=== PATIENT | female | born 1975 | race Caucasian/White ===

== ENCOUNTER → 2018-03-06 09:51 | Outpatient (CLI) | payer OTHER, SELFPAY ==
--- NOTE | 2018-03-06 09:54 | BI_ITS ---
MAMMOGRAPHY - BILATERAL SCREENING REASON FOR EXAM: Female, 42 years old. Routine annual screening examination. PERTINENT HISTORY: Aunt with breast cancer. TECHNIQUE: Digital bilateral breast juan (3D mammographic acquisition) in the CC and MLO projections. 2-D mediolateral oblique (MLO) and craniocaudad (CC) views of both breasts were obtained. CAD: Full Field Digital Mammography with Computer Added Detection was performed. COMPARISON: Comparison is made with prior study dated March 04, 2017 and March 02, 2016. FINDINGS: Breast Composition: There are scattered areas of fibroglandular density. There are no dominant masses or suspicious calcifications. Stable 1.2 cm well-defined nodule in the upper outer aspect of the right breast. This most likely is a small lymph node. Stable 6 mm well-defined nodule in the anterior superior aspect of the right breast. No other significant abnormalities are identified. There has been no significant change since the prior study. BI/SCREENING MAMM (CAD), BILAT IMPRESSION: Stable bilateral screening mammogram. Yearly follow-up mammogram recommended. (A) ASSESSMENT CATEGORY: BIRADS Category 2: Benign. A letter regarding these results will be sent to the patient by the facility within 30 days. Approximately 10% of breast cancers are not detected by mammography. A normal mammogram should not delay biopsy of a clinically suspicious abnormality. [id number] Electronically Signed: Juan M Wall MD at 9:39 EDT Tel [phone], Service support ,
== END ==
PROVIDERS: Family Provider Family Medicine; PCP Family Medicine; Visit Provider Obstetrics & Gynecology
DX: Z12.31 Encounter for screening mammogram for malignant neoplasm of breast (principal)
CPT/HCPCS: 77063; 77067

== ENCOUNTER 2018-10-03 14:18 | Observation (INO) | payer OTHER, SELFPAY ==
[2018-10-03] VITALS (8 sets, daily range): BP systolic 113–146; BP diastolic 70–91; PULSE 67–103; RESP 16–18; TEMP 36.6–36.9; O2SAT 95–99; BMI 44.7; BMI 42.8
--- NOTE | 2018-10-03 14:42 | RAD_ITS ---
STUDY: X-RAY CHEST REASON FOR EXAM: Female, 43 years old. Mid chest pain with radiation to the left side. TECHNIQUE: Single AP portable view of the chest. COMPARISON: None. FINDINGS: The lungs are clear and expanded. Scattered calcified granulomas. There is no demonstrated pleural abnormality. Normal size heart. Normal mediastinum and kahlil. Normal visualized pulmonary arteries. Normal visualized aortic arch and descending thoracic aorta. Normal visualized thoracic spine. Normal visualized ribs, clavicles, and shoulders. There is no demonstrated abnormality of the visualized soft tissue structures of the upper abdomen. RAD/Chest 1 View (Portable) IMPRESSION: Normal x-ray examination of the chest. Electronically Signed: Juan M Wall MD at 15:16 EST Tel [phone], Service support ,
--- NOTE | 2018-10-03 14:42 | EKG12_ITS ---
Test Reason : CP Blood Pressure : / mmHG Vent. Rate : 086 BPM Atrial Rate : 086 BPM P-R Int : 116 ms QRS Dur : 082 ms QT Int : 366 ms P-R-T Axes : 029 004 020 degrees QTc Int : 437 ms Normal sinus rhythm Normal ECG Confirmed by NIKUNJ ROBERT MD ([id number]), newspaper managing editor JUDITH SOLIMAN ([id number]) on 10/06/2018 2:24:42 PM Referred By: FARAZ Confirmed By:NIKUNJ ROBERT MD
[2018-10-03 14:53] LABS: Absolute Lymphocyte Count 3.46 X10^3/ul (0.83-4.51); Absolute Neutrophil Count 5.2 X10^3/uL (2.0-7.7); Basophil# 0.05 X10^3/uL; Basophil% 0.5 % (0-1); Eosinophil# 0.08 X10^3/uL; Eosinophils% 0.9 % (0-5); Hematocrit 42.1 % (37-47); Hemoglobin 13.4 g/dl (12.0-15.0); Lymphocyte # 3.46 X10^3/ul (4.0); Lymphocyte % 37.1 % (19-41); Mean Corp Hgb Conc 31.8 g/gl (32-36); Mean Corpuscular Hgb 27.5 pg (27.0-32.0); Mean Corpuscular Volume 86.4 fL (81-99); Mean Platelet Vol. 10.8 fl (6.2-12.0); Monocyte# 0.56 X10^3/uL; Neutrophil # 5.16 X10^3/uL (2.7-7.7); Neutrophil % 55.3 % (47-70); POSITIVE COUNT NO; POSITIVE DIFFERENTIAL NO; POSITIVE MORPHOLOGY NO; Platelet Count 268 K/mm3 (150-450); RBC Distribution Width CV 14.1 % (11.6-14.6); RBC Distribution Width SD 43.6 fl (35.1-43.9); Red Blood Count 4.87 M/mm3 (4.2-5.4); White Blood Count 9.3 K/mm3 (4.4-11.0)
[2018-10-03 15:02] LABS: D-Dimer Quantitative (DVT/PE) 0.34 FEU/ug/m (0.27-0.49)
[2018-10-03 15:09] LABS: Anion Gap 10 (5-15); BUN 12 mg/dL (7-18); BUN/Creat Ratio 20.4 RATIO (10-20); Calcium,Total 8.8 mg/dL (8.5-10.1); Chloride 104 mmol/L (98-107); Creatinine, Serum 0.59 mg/dL (0.55-1.02); EST Glomerular Filtration Rate 118 mL/min (>60); Est Glom Filt Rate - Afr Amer 142 mL/min (>60); Estimated Creatinine Clearance 125.84 ml/min; Glucose 95 mg/dL (74-106); Potassium 3.9 mmol/L (3.5-5.1); Sodium Level 137 mmol/L (136-145)
[2018-10-03] MEDS: 0.9% Normal Saline 1,000 ML 150 ML IV ×2 (15:13→17:27)
[2018-10-03] MEDS: Aspirin 81 MG TAB.CHEW 324 MG PO (15:13)
--- NOTE | 2018-10-03 15:23 | ED.VISSUMM ---
- ER Visit Summary Date of Service: 10/03/18 Chief Complaint: [Chest pain ] History of Present Illness: The patient is a 43 F [presents to the emergency department with pain since noon. Patient describes the pain as sharp and stabbing in the center of her chest and left chest. The pain radiates to her left shoulder and the neck. Patient describes tightness in her throat. Patient felt short of breath with it and she has had nausea and vomiting associated with it.] Patient states that she felt flushed and dizzy with it. Patient was vomiting on arrival in the emergency department. She has not had discomfort like this before. She does have a family history of heart disease and that her father has had heart attacks with cardiac stents. 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 Physical Examination: [HEENT-PERRLA, EOMI. Cranial nerves II through XII grossly intact. TMs clear. Mucous membranes moist. No adenopathy. Cardiovascular-regular rate and rhythm without murmur or ectopy Lungs-clear to auscultation, chest wall stable without crepitus or subcu emphysema Abdomen-normoactive bowel sounds, soft, nontender, no rebound or rigidity, no peritoneal signs. Extremities-intact ?4, normal range of motion, normal pulses, atraumatic] Test Results: [EKG obtained arrival shows sinus rhythm with a ventricular rate of 86 bpm with no acute ST segment changes. CBC with differential was normal. Chemistries normal. Troponin was less than 0.015. D-dimer was normal at 0.34. Chest x-ray showed nothing acute.] Emergency Department Course and Treatment: [Patient received aspirin in the emergency department. Patient was mostly pain-free on arrival.] Treatment Plan: [Admit for further workup and evaluation] Disposition: [Admit] Impression: [Chest pain-rule out acute coronary syndrome] This note was generated with [employer] dictation software. It may contain incorrect words, spelling, and punctuation that were not noted in review of the chart prior to signing ED Disposition - Plan for ED Patient: Chief Complaint: Chest Pain Referrals: Richard Murdock III, MD [Primary Care Provider] -
--- NOTE | 2018-10-03 15:28 | ED.DCSUM_ITS ---
- ER Visit Summary Date of Service: 10/03/18 Chief Complaint: [Chest pain ] History of Present Illness: The patient is a 43 F [presents to the emergency department with pain since noon. Patient describes the pain as sharp and stabbing in the center of her chest and left chest. The pain radiates to her left shoulder and the neck. Patient describes tightness in her throat. Patient felt short of breath with it and she has had nausea and vomiting associated with it.] Patient states that she felt flushed and dizzy with it. Patient was vomiting on arrival in the emergency department. She has not had discomfort like this before. She does have a family history of heart disease and that her father has had heart attacks with cardiac stents. 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 Physical Examination: [HEENT-PERRLA, EOMI. Cranial nerves II through XII grossly intact. TMs clear. Mucous membranes moist. No adenopathy. Cardiovascular-regular rate and rhythm without murmur or ectopy Lungs-clear to auscultation, chest wall stable without crepitus or subcu emphysema Abdomen-normoactive bowel sounds, soft, nontender, no rebound or rigidity, no peritoneal signs. Extremities-intact ?4, normal range of motion, normal pulses, atraumatic] Test Results: [EKG obtained arrival shows sinus rhythm with a ventricular rate of 86 bpm with no acute ST segment changes. CBC with differential was normal. Chemistries normal. Troponin was less than 0.015. D-dimer was normal at 0.34. Chest x-ray showed nothing acute.] Emergency Department Course and Treatment: [Patient received aspirin in the emergency department. Patient was mostly pain-free on arrival.] Treatment Plan: [Admit for further workup and evaluation] Disposition: [Admit] Impression: [Chest pain-rule out acute coronary syndrome] This note was generated with [employer] dictation software. It may contain incorrect words, spelling, and punctuation that were not noted in review of the chart prior to signing ED Disposition - Plan for ED Patient: Chief Complaint: Chest Pain Referrals: Richard Murdock III, MD [Primary Care Provider] -
--- NOTE | 2018-10-03 15:53 | HP.PCM_ITS ---
<Jeb Pereira - Last Filed: 10/03/18 15:57> Problem List (1) Chest pain Status: Acute (2) Restless legs Status: Chronic (3) Anxiety Status: Acute History of Present Illness Date of Admission: 10/03/18 Chief Complaint: chest pain The patient is a 43 year old F with pmhx of restless legs, morbid obesity, anxiety, former smoker, who presented to the ER with c/o 1 day hx of chest pain. This began this AM while she was sitting at work in a chair. She had a several minute episode of mid epigastric/ lower midsternal chest sharp pain with radiation into her back and left armpit. There was some associated dizziness. She had no SOB. It went away on its own, but recurred many times over the day with no specific trigger. She vomited several times during the day. She states she has not felt well for a few days and was having chills and dizziness for a few days. She has no hx of heart disease. She takes estrogen oral supplements since having a hysterectomy, but D dimer is negative. CXR, EKG, and trop are all negative. She has a positive family hx with a father with heart disease and a mother with stroke. 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 pertinent EMPLOYMENT SERVICE SPECIALIST history Lives: With Family Smoking Status: Former smoker Tobacco Use: Non-smoker Alcohol: Rare Drugs: None - *Family History Maternal History Items: Stroke Paternal History Items: Heart Disease Review of Systems Constitutional: Denies: Chills, Fever, Weight Change HEENT: Denies: Head Aches, Sinus Congestion, Sinus Drainage Cardiovascular: Denies: Chest Pain, Palpitations Respiratory: Denies: Cough, Shortness of breath at rest, Sputum production Gastrointestinal: Denies: Abdominal Pain, Nausea, Vomiting Genitourinary: Denies: Dysuria Musculoskeletal: Denies: Joint Pain, Joint Tenderness Skin: Denies: Rash, Wounds Neurological: Denies: Numbness, Tingling, Focal weakness Psychiatric: Denies: Anxiety, Depression, Homicidal Ideations, Suicidal Ideations Hematologic/ Lymphatic: Denies: Easy Bruising, Easy Bleeding VTE Information - Inpt Only VTE Present on Admission: No VTE Mechan Device Prophylaxis: None VTE Pharm Prophylaxis ordered?: Yes Patient Problems: Active and Suspected Problems Chest pain (Acute) Anxiety (Acute) - Physical Exam General: Alert, Oriented x3, Cooperative HEENT: Atraumatic, PERRLA, EOMI, Normocephalic Neck: Supple, No JVD, Negative Carotid Bruits Lungs: Clear to auscultation, Normal air movement Cardiovascular: Regular rate, No murmurs Abdomen: Bowel Sounds Present, Soft, Non Tender Extremities: No edema, Capillary Refill Less than 3 Seconds Skin: No rashes, No breakdown Musculoskeletal: No Tenderness to Palpation of Joints or Extremities Neurological: Cranial nerves II-XII grossly intact Psych/Mental Status: Normal Affect, Appropriate Vital Signs Temp Pulse Resp BP Pulse Ox 97.9 F 87 16 140/70 H 95 10/03/18 14:19 10/03/18 14:40 10/03/18 14:40 10/03/18 14:40 10/03/18 14:40 Oxygen Delivery Method Room Air Weight: 303 lb Body Mass Index (BMI) 44.7 Laboratory Tests Past 24 Hrs 10/03/18 10/03/18 10/03/18 14:35 14:35 14:35 WBC 9.3 RBC 4.87 Hgb 13.4 Hct 42.1 MCV 86.4 MCH 27.5 MCHC 31.8 L RDW 14.1 RDW Differential 43.6 Plt Count 268 MPV 10.8 Immature Gran % (Auto) 0.200 Neut % (Auto) 55.3 Lymph % (Auto) 37.1 [place] % (Auto) 6.0 Eos % (Auto) 0.9 Baso % (Auto) 0.5 Absolute Neuts (auto) 5.2 Absolute Lymphs (auto) 3.46 Total Counted Not Reportable D-Dimer Quant (PE/DVT) 0.34 Sodium 137 Potassium 3.9 Chloride 104 Carbon Dioxide 23.0 Anion Gap 10 BUN 12 Creatinine 0.59 Estim Creat Clear Calc 125.84 Est GFR (MDRD) Af Amer 142 Est GFR (MDRD) Non-Af 118 BUN/Creatinine Ratio 20.4 H Glucose 95 Calcium 8.8 Troponin I < 0.015 Assessment/Plan All Active Problems Chest pain (Acute) Anxiety (Acute) 1. Chest pain - midepigastric/lower midsternal with back and left armpit radiation. EKG negative, trop neg, cxr neg. D dimer was negative however with + fm hx of clots and pt is on estradiol - will check CTA chest. Cycle enzymes, check AM EKG, Stress test in AM. She also complains of heartburn for several days and she has had vomiting - may be a component of reflux. 2. Anxiety - prn ativan 3. RLS - requip 4. Morbid obesity - dietary eval DVT ppx: lovenox This patient was seen by Jeb Pereira PA-C under the supervision of Doctor Brant. <Ramonita Guo - Last Filed: 10/03/18 19:16> History of Present Illness The patient is a 43 year old F [] Past Medical History Allergies Penicillins [PCN] Allergy (Verified 10/03/18 16:08) Hives - Physical Exam Vital Signs Temp Pulse Resp BP Pulse Ox 98.4 F 95 18 145/80 H 98 10/03/18 16:05 10/03/18 16:05 10/03/18 16:05 10/03/18 16:05 10/03/18 16:05 Oxygen Delivery Method Room Air Weight: 303 lb Body Mass Index (BMI) 44.7 Laboratory Tests Past 24 Hrs 10/03/18 10/03/18 10/03/18 14:35 14:35 14:35 WBC 9.3 RBC 4.87 Hgb 13.4 Hct 42.1 MCV 86.4 MCH 27.5 MCHC 31.8 L RDW 14.1 RDW Differential 43.6 Plt Count 268 MPV 10.8 Immature Gran % (Auto) 0.200 Neut % (Auto) 55.3 Lymph % (Auto) 37.1 [place] % (Auto) 6.0 Eos % (Auto) 0.9 Baso % (Auto) 0.5 Absolute Neuts (auto) 5.2 Absolute Lymphs (auto) 3.46 Total Counted Not Reportable D-Dimer Quant (PE/DVT) 0.34 Sodium 137 Potassium 3.9 Chloride 104 Carbon Dioxide 23.0 Anion Gap 10 BUN 12 Creatinine 0.59 Estim Creat Clear Calc 125.84 Est GFR (MDRD) Af Amer 142 Est GFR (MDRD) Non-Af 118 BUN/Creatinine Ratio 20.4 H Glucose 95 Calcium 8.8 Troponin I < 0.015 Assessment/Plan Patient seen by Jeb Pereira PA-C under my supervision. Patient is a 43 y/o female with a PMH of anxiety was admitted with a complaint of sudden onset left-sided sharp chest pain which radiated to her shoulder and neck. She has not had pain like this before and rated about 7 out of 10. She complained of associated lightheadedness and feeling like there is a lump in her throat but denied any shortness of breath or dizziness. 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 She remembers that her mother has a history of PE but does not know whether it was provoked or unprovoked. She has also been on estrogen supplements after having a hysterectomy. In the ED, EKG was negative for any acute ST changes and D dimer was negative. She is being admitted to be managed for chest pain, to rule ACS. o/e: Vital Signs Height 5 ft 11 in Weight: 307 lb 1.663 oz Weight in Pounds 307.1 lbs Pulse Ox 98 Temperature 98.4 F Pulse Rate 95 Respiratory Rate 18 Blood Pressure 145/80 General: Alert, Oriented x3, Cooperative HEENT: Atraumatic, PERRLA, EOMI, Normocephalic Neck: Supple, No JVD, Negative Carotid Bruits Lungs: Clear to auscultation, Normal air movement Cardiovascular: Regular rate, No murmurs Abdomen: Bowel Sounds Present, Soft, Non Tender Extremities: No edema, Capillary Refill Less than 3 Seconds Skin: No rashes, No breakdown Musculoskeletal: No Tenderness to Palpation of Joints or Extremities Neurological: Cranial nerves II-XII grossly intact Psych/Mental Status: Normal Affect, Appropriate Plan is to admit to PCU with telemetry. To have CTA to rule out PE. Will do stress test tomorrow to rule out ACS. Trend troponins. PO aspirin 81mg daily and SL nitroglycerin prn. Agree with rest of Jeb Pereira PA-C's note, assessment and plan. 10/03/18 7:12pm CT angioggram came back showing normal enhancement of main pulmonary artery and right and left pulmonary arteries. Contrast bolus was inadequate to evaluate for pulmonary embolism. I was called to see patient as she kept complaining of chest pain. troponin x 2 were negative. EKG showed no acute ST changes. I am reticent about repeating CT Angiogram tonight o.a of repeated exposure to contrast this evening. She is having a stress test tomorrow also which will entail further contrast exposure. Will therefore give one dose of therapeutic lovenox SC 120mg once. If chest pain persists, to consider repeat of CT angiogram tomorrow or do a Duplex of her LEs to rule out a PE. Code Visit OBSV E&M: 91119 Initial observation care L3
--- NOTE | 2018-10-03 16:05 | CT_ITS ---
STUDY: CTA CHEST REASON FOR EXAM: Female, 43 years old. Chest pain RADIATION DOSAGE (If Supplied By Facility): CTDIvol = ( 17.65 ) mGy, DLP = ( 736.03 ) mGycm TECHNIQUE: The examination was performed with the intravenous administration of 100 ml of Isovue 370 contrast material. Post-processing of the angiographic images was performed, with multiplanar reformation and 3D reconstruction. Individualized dose optimization techniques were used for this CT. COMPARISON: None. FINDINGS: Normal enhancement of the main pulmonary artery and right and left pulmonary arteries. Contrast bolus is inadequate to evaluate for pulmonary embolism. There is contrast within the aorta and the pulmonary veins time of the study. There is poor visualization of contrast within the main pulmonary arteries into the lower branches. Normal thoracic aorta and visualized great vessels. There is no demonstrated aortic dissection. Normal heart and pericardium. Normal mediastinum. Normal hilar regions. Normal visualized trachea and bronchi. The lungs are well expanded. Normal pulmonary parenchyma. Normal pleura. Normal chest wall structures. Normal osseous structures. The liver is enlarged and fatty infiltrated. The gallbladder is present. There is a minimal hiatal hernia. CT/CTA Chest W/WO Contrast IMPRESSION: This is a nondiagnostic exam to evaluate pulmonary arteries. There is a limited amount of contrast within the pulmonary arteries time of this study. Pulmonary embolism is not included or excluded. If there is persistent clinical concern recommend repeating the study in 24 hours if renal laboratory values permit , with a dedicated pulmonary embolism protocol. Hepatic steatosis No evidence of focal infiltrate. Electronically Signed: Rita Reed MD at 17:16 EST Tel , Service support ,
--- NOTE | 2018-10-03 16:30 | EKG12_ITS ---
Test Reason : CP Blood Pressure : / mmHG Vent. Rate : 085 BPM Atrial Rate : 085 BPM P-R Int : 140 ms QRS Dur : 080 ms QT Int : 390 ms P-R-T Axes : 037 013 026 degrees QTc Int : 464 ms Normal sinus rhythm with sinus arrhythmia Normal ECG When compared with ECG of 03-OCT-2018 14:32, MANUAL COMPARISON REQUIRED, DATA IS UNCONFIRMED Confirmed by YESICA BARRAZA, NIKUNJ ([id number]), brands editor JUDITH SOLIMAN ([id number]) on 10/06/2018 3:06:00 PM Referred By: Confirmed By:NIKUNJ ROBERT MD
[2018-10-03] MEDS: Acetaminophen 325 MG Tablet 650 MG PO (17:38)
--- NOTE | 2018-10-03 19:22 | EKG12_ITS ---
Test Reason : CP Blood Pressure : / mmHG Vent. Rate : 084 BPM Atrial Rate : 084 BPM P-R Int : 152 ms QRS Dur : 086 ms QT Int : 392 ms P-R-T Axes : 041 020 020 degrees QTc Int : 463 ms Normal sinus rhythm Normal ECG When compared with ECG of 03-OCT-2018 16:24, MANUAL COMPARISON REQUIRED, DATA IS UNCONFIRMED Confirmed by YESICA BARRAZA, NIKUNJ ([id number]), online editor JUDITH SOLIMAN ([id number]) on 10/06/2018 3:06:11 PM Referred By: ZACHARIAH Confirmed By:NIKUNJ ROBERT MD
[2018-10-03] MEDS: HYDROmorphone 0.5 MG/0.5 ML SYRINGE IV (20:34)
[2018-10-03] MEDS: Pramipexole Di-HCl 0.25 MG Tablet PO (20:35)
[2018-10-03] MEDS: Enoxaparin 150 MG/ML Syringe 140 MG SC (20:35)
[2018-10-04] MEDS: 0.9% Normal Saline 1,000 ML 125 ML IV ×2 (00:42→10:55)
[2018-10-04 01:45] VITALS: BP 113/71; PULSE 73; RESP 18; TEMP 36.4; O2SAT 96
[2018-10-04] MEDS: HYDROmorphone 0.5 MG/0.5 ML SYRINGE IV (01:55)
[2018-10-04 03:02] VITALS: PULSE 70
[2018-10-04] MEDS: Ondansetron 4 MG/2 ML Vial IV (03:05)
[2018-10-04 05:30] LABS: Anion Gap 6 (5-15); BUN 10 mg/dL (7-18); Calcium,Total 7.9 mg/dL (8.5-10.1); Chloride 106 mmol/L (98-107); Creatinine, Serum 0.63 mg/dL (0.55-1.02); EST Glomerular Filtration Rate 109 mL/min (>60); Est Glom Filt Rate - Afr Amer 132 mL/min (>60); Estimated Creatinine Clearance 126.04 ml/min; Glucose 115 mg/dL (74-106); Potassium 4.4 mmol/L (3.5-5.1); Sodium Level 140 mmol/L (136-145)
[2018-10-04 05:33] LABS: Absolute Lymphocyte Count 2.49 X10^3/ul (0.83-4.51); Absolute Neutrophil Count 3.1 X10^3/uL (2.0-7.7); Basophil# 0.05 X10^3/uL; Basophil% 0.8 % (0-1); Eosinophil# 0.07 X10^3/uL; Eosinophils% 1.2 % (0-5); Hematocrit 37.6 % (37-47); Hemoglobin 11.7 g/dl (12.0-15.0); Lymphocyte # 2.49 X10^3/ul (4.0); Lymphocyte % 41.6 % (19-41); Mean Corp Hgb Conc 31.1 g/gl (32-36); Mean Corpuscular Hgb 27.3 pg (27.0-32.0); Mean Corpuscular Volume 87.9 fL (81-99); Mean Platelet Vol. 10.4 fl (6.2-12.0); Monocyte# 0.27 X10^3/uL; Monocyte% 4.5 % (0-10); Neutrophil # 3.08 X10^3/uL (2.7-7.7); Neutrophil % 51.6 % (47-70); Platelet Count 218 K/mm3 (150-450); RBC Distribution Width SD 44.5 fl (35.1-43.9); Red Blood Count 4.28 M/mm3 (4.2-5.4)
[2018-10-04 05:34] LABS: POSITIVE COUNT NO; POSITIVE DIFFERENTIAL NO; POSITIVE MORPHOLOGY NO
[2018-10-04 05:37] LABS: International Normalized Ratio 1.1; Prothrombin Time (Protime)PT. 14.2 SECONDS (11.7-14.9)
[2018-10-04 05:38] LABS: Partial Thromboplast Time 33.7 Seconds (24.1-36.2)
--- NOTE | 2018-10-04 05:55 | EKG12_ITS ---
Test Reason : AM EKG Blood Pressure : / mmHG Vent. Rate : 067 BPM Atrial Rate : 067 BPM P-R Int : 132 ms QRS Dur : 086 ms QT Int : 412 ms P-R-T Axes : -05 017 017 degrees QTc Int : 435 ms Normal sinus rhythm with sinus arrhythmia Normal ECG Confirmed by YESICA BARRAZA, NIKUNJ ([id number]), acquisition editor JUDITH SOLIMAN ([id number]) on 10/06/2018 3:05:20 PM Referred By: DR SONI Confirmed By:NIKUNJ ROBERT MD
[2018-10-04 06:38] VITALS: BP 119/74; PULSE 85; RESP 16; TEMP 36.5; O2SAT 93
[2018-10-04 06:59] VITALS: PULSE 68
--- NOTE | 2018-10-04 08:00 | STEWCON_ITS ---
Reason For Study: CHEST PAIN Stress Results Maximum Predicted HR: 175 bpm Target HR: 149 bpm % Maximum Predicted HR: 103 % DurationHeart Rate Stage (mm:ss) (bpm) BP Comment BASELINE 72 148/941CC DEFINITY STAGE 1 3:00 150 142/90 STAGE 2 3:00 173 178/70 STAGE 3 0:30 181 / 2CC DEFINITY RECOVERY 104 144/100 Stress Duration: 6:30 mm:ss Maximum Stress HR: 181 bpm Baseline Echocardiogram Findings The estimated ejection fraction is 65 %. Stress Echo Wall motion Data Resting WM Intermediate WM Stress WM Resting Wall Motion Wall Motion Stress No regional wall motion No regional wall motion abnormalities noted. abnormalities noted. EKG Data Normal intervals are noted. The patient exercised according to the regular Mitesh protocol for a total duration of 6:30. The maximum heart rate attained was 181 beats per minute. This was 103% of maximum predicted heart rate. The patient exercised into stage 3 of the Mitesh protocol. During stress, there were no ST or T wave changes noted to suggest ischemia. No arrhythmias noted. No clinical angina was noted. Interpretation Summary The study was technically difficult. Contrast injection was performed. The estimated ejection fraction is 65 %. Normal, adequate, treadmill echocardiogram. Negative for ischemia by EKG and echocardiographic criteria. No anginal symptoms noted. Rare PVC noted. Appropriate blood pressure response to exercise. Average exercise capacity for age. Test terminated due to attainment of target heart rate and dyspnea. Final LVEF of 75%. Decreased sensitivity due to poor echo windows requiring Definity agent. No complications. Ordering Physician: Brant^Ramonita^Iris^^ Performed By: Shannan Pierce RDCS
--- NOTE | 2018-10-04 09:29 | NM_ITS ---
CLINICAL: Female, 43 years old. Chest pain. Nondiagnostic CTA of the chest. NUCLEAR VENTILATION/PERFUSION - LUNG TECHNIQUE: The patient was administered 5.7 mCi of Tc MAA followed by a perfusion lung scan. The patient was administered 47.8 mCi of Tc DTPA aerosol followed by a ventilation lung scan. Comparison made to prior chest radiograph dated . COMPARISON STUDIES : Comparison is made with prior chest radiograph dated October 03, 2018. FINDINGS: The pulmonary perfusion study demonstrates uniform perfusion throughout both lung vanessa. There are no demonstrated segmental or subsegmental perfusion defects The ventilation study demonstrates uniform ventilation throughout both lung vanessa. There are no segmental or subsegmental ventilation abnormalities. NM/Lung Scan Vent/Perf IMPRESSION: Normal 99m Tc MAA pulmonary perfusion Tc DTPA aerosol ventilation imaging survey, according to revised PIOPED interpretive criteria. Electronically Signed: Juan M Wall MD at 11:02 EST Tel [phone], Service support ,
[2018-10-04 09:40] VITALS: BP 124/73; PULSE 94; RESP 20; TEMP 36.5; O2SAT 95
[2018-10-04] MEDS: LORazepam 0.5 MG Tablet PO (11:02)
[2018-10-04] MEDS: Acetaminophen 325 MG Tablet 650 MG PO (11:02)
--- NOTE | 2018-10-04 11:54 | DCINST_ITS ---
- Discharge Diagnoses Current Active Problems: Current Active and Chronic Problems Chest pain (Acute) Restless legs (Chronic) Anxiety (Acute) You will use the following diet at home:: No restrictions Your food should be the consistency of: Regular Your liquids should be the consistency of: Regular/Thin Discharge Activity: Return to Normal Activity Allergies/Adverse Reactions: Allergies Penicillins [PCN] Allergy (Verified 10/03/18 16:08) Hives Medications to take at Discharge Ativan 0.5 mg PO PRN PRN 10/03/18 Ropinirole HCl [Requip] 0.5 mg PO DAILY 10/03/18 Pantoprazole Sodium [Protonix] 40 mg PO DAILY #30 tablet 10/04/18 The following prescriptions were given: Pantoprazole Sodium [Protonix] 40 mg PO DAILY #30 tablet Primary Care Physician: Richard Murdock III, MD [Primary Care Provider] - Please follow up with your Primary Care Physician in: 1-2 weeks Test Results: Test results from this visit will be discussed in further detail at your follow- up appointment, if applicable. Proposed Discharge Date: 10/04/18
[2018-10-04 13:30] VITALS: BP 117/71; PULSE 86; RESP 16; TEMP 36.4; O2SAT 96
--- NOTE | 2018-10-04 13:47 | DS.PCM_ITS ---
<Jeb Pereira - Last Filed: 10/04/18 13:42> Discharge Date and Diagnosis Date of Admission: 10/03/18 Date of Discharge: 10/04/18 - Primary Discharge Diagnosis Active and Suspected Problems Chest pain - GERD Anxiety RLS - Secondary Discharge Diagnosis Chronic Problems Restless legs (Chronic) Hospital Course and Treatment Imaging Results: Stress Echo: Interpretation Summary The study was technically difficult. Contrast injection was performed. The estimated ejection fraction is 65 %. Normal, adequate, treadmill echocardiogram. Negative for ischemia by EKG and echocardiographic criteria. No anginal symptoms noted. Rare PVC noted. Appropriate blood pressure response to exercise. Average exercise capacity for age. Test terminated due to attainment o f target heart rate and dyspnea. Final LVEF of 75%. Decreased sensitivity due to poor echo windows requiring Definity agent. No complications. NM/Lung Scan Vent/Perf IMPRESSION: Normal 99m Tc MAA pulmonary perfusion Tc DTPA aerosol ventilation imaging survey, according to revised PIOPED interpretive criteria. CT/CTA Chest W/WO Contrast IMPRESSION: This is a nondiagnostic exam to evaluate pulmonary arteries. There is a limited amount of contrast within the pulmonary arteries time of this study. Pulmonary embolism is not included or excluded. If there is persistent clinical concern recommend repeating the study in 24 hours if renal laboratory values permit , with a dedicated pulmonary embolism protocol. Hepatic steatosis No evidence of focal infiltrate. RAD/Chest 1 View (Portable) IMPRESSION: Normal x-ray examination of the chest. Operations: None Procedures: Stress test Summary of Care Provided: Hospital Course: The patient is a 43 year old F with pmhx of RLS and anxiety, morbid obesity, who presented to the ER with c/o midepigastric and lower midsternal chest pain that came on at rest, would radiate into the right neck and left axillae, and last for a few minutes at a time before spontaneously Resolving. She had associtaed nausea and vomiting, some lightheadedness as well. She came to the ER and had negative EKG, CXR, and trop. She was admitted on tele to the pcu. No events on tele. Troponin negative x 3. Stress echo negative. D dimer, CTA chest, and VQ scan all negative for PE (she has + fm hx of clots, is on estrogen, and is sedentary). She was felt to have chest pain 2/2 reflux. She was given a 30 day trial of protonix. She was discharged home in stable condition. She needs to follow up with her PCP in 1-2 weeks. We advised her to start monitoring her BP at home. When she first came in her BP was elevated, but this normalized by the next day so watchful waiting was decided on for a plan. She also may need referral for an outpatient EGD. This patient was seen by Jeb Pereira PA-C under the supervision of Dr. Paz. [] - Physical Exam General: Alert, Oriented x3, Cooperative HEENT: Atraumatic, PERRLA, EOMI, Normocephalic Neck: Supple, No JVD, Negative Carotid Bruits Lungs: Clear to auscultation, Normal air movement Cardiovascular: Regular rate, No murmurs Abdomen: Bowel Sounds Present, Soft, Non Tender, Obese Extremities: No edema, Capillary Refill Less than 3 Seconds Skin: No rashes, No breakdown Musculoskeletal: No Tenderness to Palpation of Joints or Extremities Neurological: Cranial nerves II-XII grossly intact Psych/Mental Status: Normal Affect, Appropriate, Alert and oriented to time, place, person, mood and affect Vital Signs Temp Pulse Resp BP Pulse Ox 97.7 F L 94 20 H 124/73 H 95 10/04/18 09:40 10/04/18 09:40 10/04/18 09:40 10/04/18 09:40 10/04/18 09:40 Oxygen Delivery Method Room Air Weight: 307 lb 1.663 oz Body Mass Index (BMI) 42.8 Intake and Output for Last 24 Hours 10/02/18 10/03/18 10/04/18 23:59 23:59 23:59 Intake Total 386 / 386 1761 / 1761 Balance 386 / 386 1761 / 1761 Laboratory Tests Past 24 Hrs 10/03/18 10/03/18 10/03/18 14:35 14:35 14:35 WBC 9.3 RBC 4.87 Hgb 13.4 Hct 42.1 MCV 86.4 MCH 27.5 MCHC 31.8 L RDW 14.1 RDW Differential 43.6 Plt Count 268 MPV 10.8 Immature Gran % (Auto) 0.200 Neut % (Auto) 55.3 Lymph % (Auto) 37.1 Mckean % (Auto) 6.0 Eos % (Auto) 0.9 Baso % (Auto) 0.5 Absolute Neuts (auto) 5.2 Absolute Lymphs (auto) 3.46 Total Counted Not Reportable PT INR APTT D-Dimer Quant (PE/DVT) 0.34 Sodium 137 Potassium 3.9 Chloride 104 Carbon Dioxide 23.0 Anion Gap 10 BUN 12 Creatinine 0.59 Estim Creat Clear Calc 125.84 Est GFR (MDRD) Af Amer 142 Est GFR (MDRD) Non-Af 118 BUN/Creatinine Ratio 20.4 H Glucose 95 Calcium 8.8 Troponin I < 0.015 10/03/18 10/03/18 10/04/18 17:50 20:28 05:00 WBC 6.0 RBC 4.28 Hgb 11.7 L Hct 37.6 MCV 87.9 MCH 27.3 MCHC 31.1 L RDW 14.0 RDW Differential 44.5 H Plt Count 218 MPV 10.4 Immature Gran % (Auto) 0.300 Neut % (Auto) 51.6 Lymph % (Auto) 41.6 H Mckean % (Auto) 4.5 Eos % (Auto) 1.2 Baso % (Auto) 0.8 Absolute Neuts (auto) 3.1 Absolute Lymphs (auto) 2.49 Total Counted Not Reportable PT INR APTT D-Dimer Quant (PE/DVT) Sodium Potassium Chloride Carbon Dioxide Anion Gap BUN Creatinine Estim Creat Clear Calc Est GFR (MDRD) Af Amer Est GFR (MDRD) Non-Af BUN/Creatinine Ratio Glucose Calcium Troponin I < 0.015 < 0.015 10/04/18 10/04/18 05:00 05:00 WBC RBC Hgb Hct MCV MCH MCHC RDW RDW Differential Plt Count MPV Immature Gran % (Auto) Neut % (Auto) Lymph % (Auto) Mckean % (Auto) Eos % (Auto) Baso % (Auto) Absolute Neuts (auto) Absolute Lymphs (auto) Total Counted PT 14.2 INR 1.1 APTT 33.7 D-Dimer Quant (PE/DVT) Sodium 140 Potassium 4.4 Chloride 106 Carbon Dioxide 28.0 Anion Gap 6 BUN 10 Creatinine 0.63 Estim Creat Clear Calc 126.04 Est GFR (MDRD) Af Amer 132 Est GFR (MDRD) Non-Af 109 BUN/Creatinine Ratio 16.0 Glucose 115 H Calcium 7.9 L Troponin I Discharge Diet: No Restrictions Discharge Activity: Return to Normal Activity Home Medications: Medications to take at Discharge Ativan 0.5 mg PO PRN PRN 10/03/18 Ropinirole HCl [Requip] 0.5 mg PO DAILY 10/03/18 Pantoprazole Sodium [Protonix] 40 mg PO DAILY #30 tablet 10/04/18 Following Prescrptions Were Given to Patient: Pantoprazole Sodium [Protonix] 40 mg PO DAILY #30 tablet Primary Care Physician: Richard Murdock III, MD [Primary Care Provider] - Please follow up with your Primary Care Physician in: 1-2 weeks Disposition: Home Minutes spent on discharge:: 35 Patient Condition:: Stable Medical Necessity - Tobacco Use Smoking Status: Former smoker Tobacco Use: Non-smoker Meaningful Use Info Meaningful Use Diagnoses (Choose all that apply): None applicable <Vidal Paz - Last Filed: 10/04/18 14:38> Discharge Date and Diagnosis - Secondary Discharge Diagnosis Chronic Problems Restless legs (Chronic) Hospital Course and Treatment Imaging Results: 10/04/18 08:00 Stress Test Echo W/Contrast [ECHO] Routine 10/04/18 09:29 Lung Scan Vent/Perf [NM] Urgent Summary of Care Provided: This patient was seen in conjunction with Jeb Pereira PA-C . I have independently interviewed and examined the patient and reviewed pertinent historical, laboratory, and other data. Please refer to Jeb Pereira PA-C note for details of this patient's presentation, findings, and recommendations. I have reviewed Jeb Pereira PA-C note and concur with documented findings. In brief, patient is a 43-year-old female admitted with chest pain. Patient admitted to a monitored bed for subsequent evaluation Hospital course: As elicited above by Jeb Pereira PA-C - Physical Exam Vital Signs Temp Pulse Resp BP Pulse Ox 97.6 F L 86 16 117/71 96 10/04/18 13:30 10/04/18 13:30 10/04/18 13:30 10/04/18 13:30 10/04/18 13:30 Oxygen Delivery Method Room Air Weight: 139.3 kg Body Mass Index (BMI) 42.8 Intake and Output for Last 24 Hours 10/02/18 10/03/18 10/04/18 23:59 23:59 23:59 Intake Total 386 / 386 2487 / 2487 Balance 386 / 386 2487 / 2487 Laboratory Tests Past 24 Hrs 10/03/18 10/03/18 10/03/18 14:35 14:35 14:35 WBC 9.3 RBC 4.87 Hgb 13.4 Hct 42.1 MCV 86.4 MCH 27.5 MCHC 31.8 L RDW 14.1 RDW Differential 43.6 Plt Count 268 MPV 10.8 Immature Gran % (Auto) 0.200 Neut % (Auto) 55.3 Lymph % (Auto) 37.1 Mckean % (Auto) 6.0 Eos % (Auto) 0.9 Baso % (Auto) 0.5 Absolute Neuts (auto) 5.2 Absolute Lymphs (auto) 3.46 Total Counted Not Reportable PT INR APTT D-Dimer Quant (PE/DVT) 0.34 Sodium 137 Potassium 3.9 Chloride 104 Carbon Dioxide 23.0 Anion Gap 10 BUN 12 Creatinine 0.59 Estim Creat Clear Calc 125.84 Est GFR (MDRD) Af Amer 142 Est GFR (MDRD) Non-Af 118 BUN/Creatinine Ratio 20.4 H Glucose 95 Calcium 8.8 Troponin I < 0.015 10/03/18 10/03/18 10/04/18 17:50 20:28 05:00 WBC 6.0 RBC 4.28 Hgb 11.7 L Hct 37.6 MCV 87.9 MCH 27.3 MCHC 31.1 L RDW 14.0 RDW Differential 44.5 H Plt Count 218 MPV 10.4 Immature Gran % (Auto) 0.300 Neut % (Auto) 51.6 Lymph % (Auto) 41.6 H Mckean % (Auto) 4.5 Eos % (Auto) 1.2 Baso % (Auto) 0.8 Absolute Neuts (auto) 3.1 Absolute Lymphs (auto) 2.49 Total Counted Not Reportable PT INR APTT D-Dimer Quant (PE/DVT) Sodium Potassium Chloride Carbon Dioxide Anion Gap BUN Creatinine Estim Creat Clear Calc Est GFR (MDRD) Af Amer Est GFR (MDRD) Non-Af BUN/Creatinine Ratio Glucose Calcium Troponin I < 0.015 < 0.015 10/04/18 10/04/18 05:00 05:00 WBC RBC Hgb Hct MCV MCH MCHC RDW RDW Differential Plt Count MPV Immature Gran % (Auto) Neut % (Auto) Lymph % (Auto) Mckean % (Auto) Eos % (Auto) Baso % (Auto) Absolute Neuts (auto) Absolute Lymphs (auto) Total Counted PT 14.2 INR 1.1 APTT 33.7 D-Dimer Quant (PE/DVT) Sodium 140 Potassium 4.4 Chloride 106 Carbon Dioxide 28.0 Anion Gap 6 BUN 10 Creatinine 0.63 Estim Creat Clear Calc 126.04 Est GFR (MDRD) Af Amer 132 Est GFR (MDRD) Non-Af 109 BUN/Creatinine Ratio 16.0 Glucose 115 H Calcium 7.9 L Troponin I Code Visit OBSV E&M: [id number] Observation care discharge
== END 2018-10-04 11:53 | disposition home or self-care (01) ==
LOC: ED 14:47 → PCU 15:45
PROVIDERS: Admitting Provider Student in an Organized Health Care Education/Training Program; Emergency Provider Emergency Medicine; Family Provider Family Medicine; PCP Family Medicine; Visit Provider Internal Medicine
DX: R07.89 Other chest pain (principal); R11.2 Nausea with vomiting, unspecified; R42 Dizziness and giddiness; Z82.49 Family history of ischemic heart disease and other diseases of the circulatory system; G25.81 Restless legs syndrome; Z79.899 Other long term (current) drug therapy; Z87.891 Personal history of nicotine dependence; E66.01 Morbid (severe) obesity due to excess calories; Z68.41 Body mass index [BMI] 40.0-44.9, adult; Z71.3 Dietary counseling and surveillance; F41.9 Anxiety disorder, unspecified; K21.9 Gastro-esophageal reflux disease without esophagitis
CPT/HCPCS: 36415; 71045; 71275; 78582; 80048; 84484; 85025; 85379; 85610; 85730; 93005; 93017; 93350; 96361; 96372; 96374; 96375; 96376; 99218; 99285; A9540; A9567; J7030; Q9957; Q9967; A4216; C8928; G0378; J2405

== ENCOUNTER → 2019-03-08 17:00 | Outpatient (CLI) | payer OTHER, SELFPAY ==
[2018-10-03 16:26] VITALS: BMI 42.8
--- NOTE | 2019-03-08 16:27 | BI_ITS ---
MAMMOGRAPHY - BILATERAL SCREENING REASON FOR EXAM: Female, 43 years old. Routine annual screening examination. PERTINENT HISTORY: Aunts with breast cancer. TECHNIQUE: Digital bilateral breast juan (3D mammographic acquisition) in the CC and MLO projections. 2-D mediolateral oblique (MLO) and craniocaudad (CC) views of both breasts were obtained. CAD: Full Field Digital Mammography with Computer Added Detection was performed. COMPARISON: Comparison is made with prior study dated March 06, 2018 and March 04, 2017. FINDINGS: Breast Composition: There are scattered areas of fibroglandular density. There are no dominant masses or suspicious calcifications. Stable 1.3 cm well-defined nodule in the upper lateral portion of the right breast suggestive of a small intramammary lymph node. Stable 6 mm well-defined nodule in the anterior superior aspect of the right breast. No other significant abnormalities are identified. There has been no significant change since the prior study. BI/SCREENING MAMM (CAD), BILAT IMPRESSION: Stable bilateral screening mammogram. Yearly follow-up mammogram recommended. (A) ASSESSMENT CATEGORY: BIRADS Category 2: Benign. A letter regarding these results will be sent to the patient by the facility within 30 days. Approximately 10% of breast cancers are not detected by mammography. A normal mammogram should not delay biopsy of a clinically suspicious abnormality. [id number] Electronically Signed: Juan M Wall, at 8:12 EDT , Service support ,
== END ==
PROVIDERS: Family Provider Family Medicine; PCP Family Medicine; Referring Provider Obstetrics & Gynecology; Visit Provider Obstetrics & Gynecology
DX: Z12.31 Encounter for screening mammogram for malignant neoplasm of breast (principal)
CPT/HCPCS: 77063; 77067

== ENCOUNTER → 2020-07-14 | Outpatient (CLI) | payer OTHER, SELFPAY ==
[2018-10-03 16:26] VITALS: BMI 42.8
--- NOTE | 2020-07-14 12:05 | RAD_ITS ---
STUDY: X-RAY - LUMBAR SPINE REASON FOR EXAM: Female, 44 years old. Low back pain TECHNIQUE: 3 view(s) of the lumbar spine were obtained. COMPARISON: None FINDINGS: There is straightening of the normal lumbar lordosis. There is no substantial scoliosis. There is a normal alignment of the vertebrae. Marked degree of disc space narrowing and spondylosis at the L5-S1 level. The soft tissue structures are unremarkable. RAD/Lumbar Spine 2 or 3 Views IMPRESSION: Moderate degree of disc space narrowing and spondylosis at the L5-S1 level Loss of the normal lumbar lordosis. Electronically Signed: Juan M Wall, at 15:57 EDT , Service support ,
== END | disposition home or self-care (01) ==
LOC: RAD 12:00
PROVIDERS: PCP Family Medicine; Referring Provider Anesthesiology Pain Medicine; Visit Provider Anesthesiology Pain Medicine
DX: M54.5 Low back pain (principal)
CPT/HCPCS: 72100

== ENCOUNTER → 2020-08-07 | Outpatient (CLI) | payer OTHER, SELFPAY ==
[2018-10-03 16:26] VITALS: BMI 42.8
--- NOTE | 2020-08-07 12:11 | RAD_ITS ---
STUDY: X-RAY - RIGHT FOOT CLINICAL: Female, 44 years old. FOOT PAIN, HX SURGERY TECHNIQUE: 3 view(s) of the foot. COMPARISON: None. FINDINGS: Normal talus, calcaneus, and tarsal bones. Normal visualized subtalar, talonavicular, calcaneocuboid, tarsal and tarsometatarsal articulations. Normal metatarsi. Operative fusion of the first MTP joint with fixation plate and screws. Normal tibial and fibular sesamoid bones. Normal interphalangeal joint of the great toe. Normal phalanges of the great toe. Normal second through fifth metatarsophalangeal joints. Normal interphalangeal joints and phalanges of the lesser toes. Mild soft tissue swelling of the medial foot. RAD/Foot min 3 Views IMPRESSION: 1. Surgical fixation of first MTP joint. Electronically Signed: Bebeto Nagy MD ([place]) at 13:18 EDT , Service support ,
== END | disposition home or self-care (01) ==
LOC: MTRAD 12:09
PROVIDERS: PCP Family Medicine; Referring Provider Family Medicine; Visit Provider Family Medicine
DX: M79.674 Pain in right toe(s) (principal)
CPT/HCPCS: 73630

== ENCOUNTER → 2020-08-14 | Outpatient (CLI) | payer OTHER, SELFPAY ==
[2018-10-03 16:26] VITALS: BMI 42.8
[2020-08-14 12:39] LABS: Vitamin D,25 Hydroxy 19.5 ng/mL
[2020-08-14 12:47] LABS: Anion Gap 5 (5-15); BUN 13 mg/dL (7-18); BUN/Creat Ratio 23.7 RATIO (10-20); Calcium,Total 8.7 mg/dL (8.5-10.1); Chloride 107 mmol/L (98-107); Cholesterol 213 mg/dL (200); Creatinine, Serum 0.55 mg/dL (0.55-1.02); EST Glomerular Filtration Rate 126 mL/min (>60); Est Glom Filt Rate - Afr Amer 153 mL/min (>60); Glucose 87 mg/dL (74-106); High Density Lipoprotein 53 mg/dL; Potassium 4.4 mmol/L (3.5-5.1); Sodium Level 138 mmol/L (136-145); Thyroid Stim Hormone (TSH) 2.78 uIU/mL (0.358-3.74); Triglycerides 368 mg/dL; Very Low Density Lipoprotein 74 mg/dL (5-40)
== END | disposition home or self-care (01) ==
LOC: MFPLAB 10:33
PROVIDERS: PCP Family Medicine; Referring Provider Family Medicine; Visit Provider Family Medicine
DX: Z00.00 Encounter for general adult medical examination without abnormal findings (principal); I10 Essential (primary) hypertension; E66.9 Obesity, unspecified
CPT/HCPCS: 36415; 80048; 80061; 82306; 84443

== ENCOUNTER → 2020-08-16 | Outpatient (CLI) | payer OTHER, SELFPAY ==
[2018-10-03 16:26] VITALS: BMI 42.8
--- NOTE | 2020-08-16 10:00 | BI_ITS ---
MAMMOGRAPHY - BILATERAL SCREENING REASON FOR EXAM: Female, 44 years old. Routine annual screening examination. PERTINENT HISTORY: Aunts with breast cancer. TECHNIQUE: Digital bilateral breast mukesh (3D mammographic acquisition) in the CC and MLO projections. 2-D mediolateral oblique (MLO) and craniocaudad (CC) views of both breasts were obtained. CAD: Full Field Digital Mammography with Computer Added Detection was performed. COMPARISON: Comparison is made with prior study dated 03/08/2019 and 03/06/2018. FINDINGS: Breast Composition: There are scattered areas of fibroglandular density. There are no dominant masses or suspicious calcifications. Stable benign-appearing nodules in the lateral superior aspect of the right breast suggestive of small lymph nodes. Prior sonogram dated 01/20/2015 demonstrated these to be small lymph nodes. No other significant abnormalities are identified. There has been no significant change since the prior study. BI/SCREEN MAMM (CAD) W/MUKESH BILAT IMPRESSION: Stable bilateral screening mammogram. Yearly follow-up mammogram recommended. (A) ASSESSMENT CATEGORY: BIRADS Category 2: Benign. A letter regarding these results will be sent to the patient by the facility within 30 days. Approximately 10% of breast cancers are not detected by mammography. A normal mammogram should not delay biopsy of a clinically suspicious abnormality. [id number] Electronically Signed: Juan M Wall, at 9:34 EDT , Service support ,
== END | disposition home or self-care (01) ==
PROVIDERS: PCP Family Medicine; Referring Provider Obstetrics & Gynecology; Visit Provider Obstetrics & Gynecology
DX: Z12.31 Encounter for screening mammogram for malignant neoplasm of breast (principal)
CPT/HCPCS: 77063; 77067

== ENCOUNTER → 2020-09-08 10:32 | Outpatient (CLI) | payer OTHER, SELFPAY ==
[2018-10-03 16:26] VITALS: BMI 42.8
--- NOTE | 2020-09-08 10:45 | RAD_ITS ---
STUDY: X-RAY - PELVIS AND LEFT HIP REASON FOR EXAM: Female, 44 years old. PAIN, NKI TECHNIQUE: 3 views of the pelvis and hip. COMPARISON: None. FINDINGS: There is a non-specific bowel gas pattern. Normal visualized soft tissue structures. Normal bilateral iliac wings, sacroiliac joints and visualized sacrum. Normal bilateral superior and inferior pubic rami. Normal pubic symphysis. Normal bilateral ischial tuberosities. Normal visualized femoral head. Normal acetabulum. Normal hip joint. RAD/HIP, UNI W/ Pelvis 2-3 Views IMPRESSION: Normal x-ray examination of the pelvis and hip. Electronically Signed: Juan M Wall, at 15:41 EST , Service support ,
== END ==
PROVIDERS: PCP Family Medicine; Referring Provider Anesthesiology Pain Medicine; Visit Provider Anesthesiology Pain Medicine
DX: M25.551 Pain in right hip (principal)
CPT/HCPCS: 73502

== ENCOUNTER 2020-09-09 17:00 | Outpatient (RCR) | payer OTHER, SELFPAY ==
[2018-10-03 16:26] VITALS: BMI 42.8
--- NOTE | 2020-07-31 17:49 | HP.PTEVAL ---
Patient's Visit Information EVAN TERRAZAS is a 44 year old F referred to Physical Therapy by Dr. Zuri Armenta MD with a diagnosis of LBO, foot pain. Date of Evaluation: 07/31/20 Physical Therapist: Porter Spence, DPT, OCS, CSCS - Visit Plan Frequency: 2-3x /Week Duration: 4-6 Weeks Plan: 2-3x/week for 4-6 weeks as helpful for: 1. Liliana extension exercises to LB, mobs as needed, progress to remodelling flexion adn core sterngth as tolerated. 2. Montior BPPV and let porter know if still present with functional movments in therapy. 3. Each visit please do desensitaization massage and scar massage to 1st ray on R foot adn A/PROM to tolerance. May do ankle strength, TENS and MH/ice contrast if needed. Gait training when foot feeling better. - Subjective R foot surgery in December cleaning out arthritis and realigned adn plate and screws by Dr. Peterson. Did not help her pain. Dr. Kim told her it is slowly healing adn could take a while. 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 Back to work end May. Pain is top of front R foot 9/10, sometimes 0/10 with icing and elevating. Worse at end of week. Dr. Armenta is treating foot newly but is her back pain doctor. Did get a shot in back last tuesday. Back goes out alot and has LBP, no recent sciatica, Feels compressed. Not sure why. 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 Sleep is up every two hours due to pain somewhat and anxiety. LBP to 5/10 worse with sittign too long and picking things up. I still do everything but does not enjoy things. Hobbies: Continues to do cooking adnd cleaning and walks with kids all of which are somewhat limited. Kids play soccer and has a senior in Retention Science and sophomore in college. sitting in chair to watch games is hurting a little, worse in stands. No regular exercises. - Pain lbp Pain Intensity (Out of 10): 0 Pain Intensity Range: 0, 5 R foot Pain Intensity (Out of 10): 8 Pain Intensity Range: 0, 8 - Objective Walks with R antalgia and foot turned in to avoid 1 ray WB, I with gait and safe.Transsfers I but some back pain evident. - R hd, + L hallpike blake up torsional nystagmus. L/S AROM ext mod limited and painful centrally, R SB painful and limited, flexion stretchy and full. reflexes 2/3 patella adn achilles. Sensation LE WNL to gross light touch but extremely hypersensitive in 1st ray R foot to even light touch. No unusual coloration today and pulse is palpable pedally in R . No unusual swelling. Scar is healed and not unusually colored today. Strength LE hips and knees 4/5 withotu myotomal problems. Big toe very stiff on R with almost nil Passive motion and painful to try. AROM big toe and 1st metatarsal is poor and painful. Hurts to contract big toe flexors and extensors but not other toes. Skin at incision seems to stick to tissue underneath it. Ankle aROM WFL and without pain and symmetrical. R pes planus is obvious in standing. - Goals Goal 1:: LBP 75% betteran 1/10 at worst and manageable Goal Time Frame: 4-6 Weeks Goal 2:: R big toe not tender to touch and having slight mobility without pain Goal Time Frame: 4-6 Weeks Goal 3:: Walk with minimal antalgia and no pain >2/10 in foot Goal Time Frame: 4-6 Weeks Goal 4:: sleep without difficulties at night. Goal Time Frame: 4-6 Weeks Goal 5:: LB oswestry 10 or less. Goal Time Frame: 4-6 Weeks Goal 6:: Abolish vertigo Goal Time Frame: 2-4 Weeks - Rehabilitation Potential Rehabilitation Potential: Questionable - Anticipated Interventions Patient/Client Instruction: Educate patient on: Condition, Plan of Care For the Purpose of:: To decrease pain, To increase ROM, To improve muscle performance and motor function, To increase tolerance to activity/condition/position, To improve ability of physical actions for home/community/work/leisure Therapeutic Exercise to Include: Strength training, Postural training, Flexibilty training, Gait and locomotor training, Neuromotor development, Passive ROM, Active ROM, Dynamic Lumbar Stabilization For the Purpose of:: To decrease pain, To increase ROM, To improve muscle performance and motor function, To increase tolerance to activity/condition/position, To improve ability of physical actions for home/community/work/leisure Manual Therapy Techniques to Include: Scar massage, Mobilization, Soft tissue mobilization For the Purpose of:: To decrease pain, To increase ROM TENS: Yes Cryotherapy (ice pack, ice massage): Yes Thermo therapy (hot pack): Yes For the Purpose of:: To decrease pain Thank you for the opportunity to evaluate your patient. For Medicare and Medicare HMO plans, please review the plan of care and approve it. It will need to be FAXED BACK to us at [phone] for Medicare purposes. For Medicare only, by signing this I certify the plan of care. Please let me know if there are questions or concerns regarding this plan of care. Physician Signature: Date:
--- NOTE | 2020-09-09 17:34 | HP.PTREVAL ---
Dr. Zuri Armenta MD, It has been my pleasure to treat EVAN TERRAZAS over the last 8 visits for LBO, foot pain. Please see the progress note below for an update on the physical therapy plan of care! Subjective: No dizzyness lately and it is gone. Saw Geovany and is going to do another pain shot in two months in R LB. Lst shot worked good for 3 weeks. LB feeling good. To 4 10 intermittently daily. 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 Activities are normal but has pain with lifting boxes(is moving right now). Foot pain is still present, has more movement then when she started. Pain from 5-8/10 every step. Ok sitting, much better. Therapy has been helping foot and can do it at home Objective/Function: Big toe still very tender at end ranges of ext adn flexion and big toe/first met auxiliary equipment tender mod to touch. Ankle aROM is good, strenth inv/ev 3+ vs 4+ DF/PF. LB AROM WFL and without pain today. Some central stretching at end of ext. Overall slowly improving. Plan Plan: LB oswestry... Pt does nto wish to get more aggressive with exercises right now but will continue via HEP and f/u in 3 weeks callilng if condition worsens prior. Options in 3 weeks after checking LB ROM, big toe ROM, ankle strength are... 1. D/C. progress to quad and prone core strength with plank and d/c OR start more aggressive gym program and continue PT if back needs more help. Goals Goal 1:: LBP 75% betteran 1/10 at worst and manageable Goal Time Frame: 4-6 Weeks Goal Progress: Progressing Goal 2:: R big toe not tender to touch and having slight mobility without pain Goal Time Frame: 4-6 Weeks Goal Progress: Progressing Goal 3:: Walk with minimal antalgia and no pain >2/10 in foot Goal Time Frame: 4-6 Weeks Goal Progress: Progressing slowly Goal 4:: sleep without difficulties at night. Goal Time Frame: 4-6 Weeks Goal Progress: Goal Met, back and foot Goal 5:: LB oswestry 10 or less. Goal Time Frame: 4-6 Weeks Goal 6:: Abolish vertigo Goal Time Frame: 2-4 Weeks Goal Progress: Goal Met Anticipated Interventions Patient/Client Instruction: Educate patient on: Condition, Plan of Care For the Purpose of:: To decrease pain, To increase ROM, To improve muscle performance and motor function, To increase tolerance to activity/condition/position, To improve ability of physical actions for home/community/work/leisure Therapeutic Exercise to Include: Strength training, Postural training, Flexibilty training, Gait and locomotor training, Neuromotor development, Passive ROM, Active ROM, Dynamic Lumbar Stabilization For the Purpose of:: To decrease pain, To increase ROM, To improve muscle performance and motor function, To increase tolerance to activity/condition/position, To improve ability of physical actions for home/community/work/leisure Manual Therapy Techniques to Include: Scar massage, Mobilization, Soft tissue mobilization For the Purpose of:: To decrease pain, To increase ROM TENS: Yes Cryotherapy (ice pack, ice massage): Yes Thermo therapy (hot pack): Yes For the Purpose of:: To decrease pain Please do not hesitate to contact me at [phone] by phone or if you have questions or concerns regarding this new plan of care! Sincerely, Casper Spence, DPT, OCS, CSCS
--- NOTE | 2020-11-10 15:27 | HP.PTDCNRP_ITS ---
EVAN TERRAZAS was seen in my office for initial evaluation on 07/31/20. The following Plan of Care was established for this patient: Initial Frequency: 2-3x /Week Initial Duration: 4-6 Weeks Patient/Client Instruction: Educate patient on: Condition, Plan of Care For the Purpose of:: To decrease pain, To increase ROM, To improve muscle performance and motor function, To increase tolerance to activity/condition/position, To improve ability of physical actions for home/community/work/leisure Therapeutic Exercise to Include: Strength training, Postural training, Flexibilty training, Gait and locomotor training, Neuromotor development, Passive ROM, Active ROM, Dynamic Lumbar Stabilization For the Purpose of:: To decrease pain, To increase ROM, To improve muscle performance and motor function, To increase tolerance to activ ity/condition/position, To improve ability of physical actions for home/community/work/leisure Manual Therapy Techniques to Include: Scar massage, Mobilization, Soft tissue mo bilization For the Purpose of:: To decrease pain, To increase ROM TENS: Yes Cryotherapy (ice pack, ice massage): Yes Thermo therapy (hot pack): Yes For the Purpose of:: To decrease pain This patient was last seen in our office 09/09/20. Pertinent comments regarding their Physical therapy will appear below: Pt seen 8 visits and was 55% better at last recheck. She was to continue via HEP and f/u one month later but never attended that visit. At this point, it has been over two months and I will disocntinue due to nonattendance. At this point I will be discontinuing this patient from physical therapy. I would be happy to see this patient again in the future if found appropriate by the physician. Thank you! Casper Spence, DPT, OCS, CSCS
== END 2020-09-09 19:00 | disposition home or self-care (01) ==
LOC: PT 17:00
PROVIDERS: PCP Family Medicine; Referring Provider Anesthesiology Pain Medicine; Visit Provider Anesthesiology Pain Medicine
DX: M54.9 Dorsalgia, unspecified (principal); M79.673 Pain in unspecified foot
CPT/HCPCS: 97014; 97110; 97140; 97163; 97164; G0283

== ENCOUNTER → 2020-10-06 | Outpatient (CLI) | payer OTHER, SELFPAY ==
[2018-10-03 16:26] VITALS: BMI 42.8
== END | disposition home or self-care (01) ==
PROVIDERS: PCP Family Medicine; Referring Provider Family Medicine; Visit Provider Family Medicine
DX: U07.1 COVID-19 (principal)
CPT/HCPCS: 87635; U0003

== ENCOUNTER → 2020-10-23 12:05 | Outpatient (CLI) | payer OTHER, SELFPAY ==
[2018-10-03 16:26] VITALS: BMI 42.8
--- NOTE | 2020-10-23 12:08 | RAD_ITS ---
STUDY: X-RAY - LEFT SHOULDER REASON FOR EXAM: Female, 45 years old. LEFT SHOULDER PAIN X2 MONTHS. NO KNOW INJURY. TECHNIQUE: 4 view(s) of the shoulder. COMPARISON: None. FINDINGS: Normal glenohumeral articulation. Normal acromioclavicular joint. Normal acromion. Normal humeral head and visualized proximal humerus. The soft tissue structures are unremarkable. Normal visualized pulmonary apex. RAD/Shoulder min 2 Views IMPRESSION: Normal x-ray examination of the shoulder. Electronically Signed: Juan M aWll, at 12:38 EST , Service support ,
--- NOTE | 2020-10-23 12:10 | RAD_ITS ---
STUDY: X-RAY - RIGHT SHOULDER REASON FOR EXAM: Female, 45 years old. RIGHT SHOULDER PAIN X2 MONTHS. NO KNOWN INJURY. TECHNIQUE: 4 view(s) of the shoulder. COMPARISON: None. FINDINGS: Normal glenohumeral articulation. Normal acromioclavicular joint. Normal acromion. Normal humeral head and visualized proximal humerus. The soft tissue structures are unremarkable. Normal visualized pulmonary apex. RAD/Shoulder min 2 Views IMPRESSION: Normal x-ray examination of the shoulder. Electronically Signed: Juan M Wall, at 12:39 EST , Service support ,
== END ==
PROVIDERS: PCP Family Medicine; Visit Provider Anesthesiology Pain Medicine
DX: M25.511 Pain in right shoulder (principal); M25.512 Pain in left shoulder
CPT/HCPCS: 73030

== ENCOUNTER → 2021-04-08 10:08 | Outpatient (CLI) | payer OTHER, SELFPAY ==
[2021-04-08 12:21] LABS: Erythrocyte Sedimentation Rate 31 mm/hr (0-30)
[2021-04-08 12:22] LABS: Absolute Lymphocyte Count 3.07 X10^3/uL (0.83-4.51); Absolute Neutrophil Count 3.8 X10^3/uL (2.0-7.7); Basophil# 0.07 X10^3/uL; Basophil% 0.9 % (0-1); Eosinophil# 0.07 X10^3/uL; Eosinophils% 0.9 % (0-5); Hematocrit 42.6 % (37-47); Hemoglobin 13.3 g/dL (12.0-15.0); Lymphocyte # 3.07 X10^3/ul (0.83-4.51); Lymphocyte % 41.2 % (19-41); Mean Corp Hgb Conc 31.2 g/dL (32-36); Mean Corpuscular Hgb 26.3 pg (27.0-32.0); Mean Corpuscular Volume 84.4 fL (81-99); Monocyte# 0.43 X10^3/uL; Monocyte% 5.8 % (0-10); NRBC Flagged by Analyzer 0 % (0-5); Neutrophil # 3.77 X10^3/uL (2.7-7.7); Neutrophil % 50.5 % (47-70); Platelet Count 299 K/mm3 (150-450); RBC Distribution Width CV 14.2 % (11.6-14.6); RBC Distribution Width SD 43.4 fl (35.1-43.9); Red Blood Count 5.05 M/mm3 (4.2-5.4); White Blood Count 7.5 K/mm3 (4.4-11.0)
[2021-04-08 12:33] LABS: ALB/GLOB Ratio 0.9 RATIO (0.9-2.4); AST(SGOT) 15 U/L (15-37); Alanine Aminotransfer ALT/SGPT 33 U/L (13-56); Albumin, Serum 3.6 g/dL (3.2-5.0); Alkaline Phosphatase 114 U/L (45-117); Anion Gap 6 (5-15); BUN 10 mg/dL (7-18); BUN/Creat Ratio 16.3 RATIO (10-20); Calcium,Total 9.3 mg/dL (8.5-10.1); Chloride 103 mmol/L (98-107); Creatinine, Serum 0.61 mg/dL (0.55-1.02); EST Glomerular Filtration Rate 111 mL/min (>60); Est Glom Filt Rate - Afr Amer 134 mL/min (>60); Globulin 4.1 g/dL (2.2-4.2); Glucose 112 mg/dL (74-106); Potassium 4.1 mmol/L (3.5-5.1); Protein, Total 7.7 g/dL (6.4-8.2); Rheumatoid Factor < 10.0 IU/mL (<15); Sodium Level 138 mmol/L (136-145)
[2021-04-08 13:06] LABS: Hepatitis B Surface Antibody Non-Reactive; Hepatitis B Surface Antigen Non-Reactive (Nonreactive); Hepatitis C Antibody Non-Reactive (Nonreactive)
[2021-04-09 16:28] LABS: ANTINUCLEAR ANTIBODIES DIRECT Negative (Negative)
[2021-04-14 20:17] LABS: CCP IgG Antibodies 3 units (0-19); HLA B27 Negative (.)
== END ==
PROVIDERS: PCP Family Medicine; Referring Provider Internal Medicine Rheumatology; Visit Provider Internal Medicine Rheumatology
DX: M06.4 Inflammatory polyarthropathy (principal); M79.7 Fibromyalgia; G25.81 Restless legs syndrome; I10 Essential (primary) hypertension; R51.9 Headache, unspecified; K21.9 Gastro-esophageal reflux disease without esophagitis
CPT/HCPCS: 36415; 80053; 81374; 85025; 85652; 86038; 86140; 86200; 86431; 86706; 86803; 87340

== ENCOUNTER → 2021-04-27 09:39 | Outpatient (CLI) | payer OTHER, SELFPAY ==
[2021-04-27 12:17] LABS: Cholesterol 228 mg/dL (200); High Density Lipoprotein 44 mg/dL; Triglycerides 263 mg/dL; Very Low Density Lipoprotein 53 mg/dL (5-40)
[2021-04-27 12:19] LABS: Vitamin D,25 Hydroxy 29.8 ng/mL
== END ==
PROVIDERS: PCP Family Medicine; Referring Provider Family Medicine; Visit Provider Family Medicine
DX: I10 Essential (primary) hypertension (principal); E55.9 Vitamin D deficiency, unspecified
CPT/HCPCS: 36415; 80061; 82306

== ENCOUNTER → 2021-06-16 09:46 | Outpatient (CLI) | payer OTHER, SELFPAY ==
[2021-06-16 12:05] LABS: Absolute Lymphocyte Count 2.95 X10^3/uL (0.83-4.51); Absolute Neutrophil Count 5.2 X10^3/uL (2.0-7.7); Basophil# 0.07 X10^3/uL; Basophil% 0.8 % (0-1); Eosinophil# 0.09 X10^3/uL; Hematocrit 39.6 % (37-47); Hemoglobin 12.3 g/dL (12.0-15.0); Lymphocyte # 2.95 X10^3/ul (0.83-4.51); Lymphocyte % 33.4 % (19-41); Mean Corp Hgb Conc 31.1 g/dL (32-36); Mean Corpuscular Hgb 26.3 pg (27.0-32.0); Mean Corpuscular Volume 84.6 fL (81-99); Mean Platelet Vol. 10.6 fl (6.2-12.0); Monocyte# 0.51 X10^3/uL; Monocyte% 5.8 % (0-10); NRBC Flagged by Analyzer 0 % (0-5); Neutrophil # 5.16 X10^3/uL (2.7-7.7); Neutrophil % 58.5 % (47-70); Platelet Count 279 K/mm3 (150-450); RBC Distribution Width SD 45.7 fl (35.1-43.9); Red Blood Count 4.68 M/mm3 (4.2-5.4); White Blood Count 8.8 K/mm3 (4.4-11.0)
[2021-06-16 12:29] LABS: ALB/GLOB Ratio 0.9 RATIO (0.9-2.4); AST(SGOT) 29 U/L (15-37); Alanine Aminotransfer ALT/SGPT 45 U/L (13-56); Albumin, Serum 3.6 g/dL (3.2-5.0); Alkaline Phosphatase 107 U/L (45-117); Anion Gap 8 (5-15); BUN 11 mg/dL (7-18); BUN/Creat Ratio 20.2 RATIO (10-20); Calcium,Total 9.2 mg/dL (8.5-10.1); Chloride 106 mmol/L (98-107); Creatinine, Serum 0.54 mg/dL (0.55-1.02); EST Glomerular Filtration Rate 127 mL/min (>60); Est Glom Filt Rate - Afr Amer 154 mL/min (>60); Globulin 3.8 g/dL (2.2-4.2); Glucose 111 mg/dL (74-106); Potassium 3.7 mmol/L (3.5-5.1); Protein, Total 7.4 g/dL (6.4-8.2); Sodium Level 140 mmol/L (136-145)
== END ==
PROVIDERS: PCP Family Medicine; Referring Provider Internal Medicine Rheumatology; Visit Provider Internal Medicine Rheumatology
DX: M06.4 Inflammatory polyarthropathy (principal); M79.7 Fibromyalgia; G25.81 Restless legs syndrome; I10 Essential (primary) hypertension; R51.9 Headache, unspecified; K21.9 Gastro-esophageal reflux disease without esophagitis
CPT/HCPCS: 36415; 80053; 85025

== ENCOUNTER → 2021-08-03 15:01 | Outpatient (CLI) | payer OTHER, SELFPAY | PROVIDERS: PCP Family Medicine; Referring Provider Family Medicine; Visit Provider Family Medicine | DX: J06.9 Acute upper respiratory infection, unspecified (principal) | CPT/HCPCS: 87635; U0005; U0003 ==

== ENCOUNTER → 2021-08-18 12:01 | Outpatient (CLI) | payer OTHER, SELFPAY ==
[2021-08-18 15:01] LABS: Absolute Lymphocyte Count 3.63 X10^3/uL (0.83-4.51); Basophil# 0.09 X10^3/uL; Basophil% 0.9 % (0-1); Eosinophils% 1.1 % (0-5); Hematocrit 41.4 % (37-47); Hemoglobin 12.8 g/dL (12.0-15.0); Lymphocyte # 3.63 X10^3/ul (0.83-4.51); Lymphocyte % 38.3 % (19-41); Mean Corp Hgb Conc 30.9 g/dL (32-36); Mean Corpuscular Hgb 26.8 pg (27.0-32.0); Mean Corpuscular Volume 86.8 fL (81-99); Mean Platelet Vol. 10.5 fl (6.2-12.0); Monocyte# 0.59 X10^3/uL; Monocyte% 6.2 % (0-10); NRBC Flagged by Analyzer 0 % (0-5); Neutrophil # 5.03 X10^3/uL (2.7-7.7); Neutrophil % 53.1 % (47-70); Platelet Count 331 K/mm3 (150-450); RBC Distribution Width CV 15.7 % (11.6-14.6); RBC Distribution Width SD 49.2 fl (35.1-43.9); Red Blood Count 4.77 M/mm3 (4.2-5.4); White Blood Count 9.5 K/mm3 (4.4-11.0)
[2021-08-18 15:25] LABS: ALB/GLOB Ratio 0.7 RATIO (0.9-2.4); AST(SGOT) 33 U/L (15-37); Alanine Aminotransfer ALT/SGPT 55 U/L (13-56); Albumin, Serum 3.4 g/dL (3.2-5.0); Alkaline Phosphatase 115 U/L (45-117); Anion Gap 10 (5-15); BUN 13 mg/dL (7-18); BUN/Creat Ratio 22.1 RATIO (10-20); Calcium,Total 9.3 mg/dL (8.5-10.1); Chloride 101 mmol/L (98-107); Creatinine, Serum 0.59 mg/dL (0.55-1.02); EST Glomerular Filtration Rate 116 mL/min (>60); Est Glom Filt Rate - Afr Amer 141 mL/min (>60); Globulin 4.6 g/dL (2.2-4.2); Glucose 108 mg/dL (74-106); Potassium 3.6 mmol/L (3.5-5.1); Sodium Level 138 mmol/L (136-145)
== END ==
PROVIDERS: PCP Family Medicine; Referring Provider Internal Medicine Rheumatology; Visit Provider Internal Medicine Rheumatology
DX: M06.4 Inflammatory polyarthropathy (principal); M79.7 Fibromyalgia; G25.81 Restless legs syndrome; I10 Essential (primary) hypertension; R51.9 Headache, unspecified; K21.9 Gastro-esophageal reflux disease without esophagitis; Z79.899 Other long term (current) drug therapy
CPT/HCPCS: 36415; 80053; 85025

== ENCOUNTER → 2021-08-26 10:29 | Outpatient (CLI) | payer OTHER, SELFPAY ==
[2021-08-26 13:28] LABS: Amphetamine Urine VISTA NEGATIVE (<1000 ng/mL); Barbiturate Urine VISTA NEGATIVE (< 200 ng/mL); Benzodiazepine Urine VISTA NEGATIVE (< 200 ng/mL); Cocaine Urine VISTA NEGATIVE (< 300 ng/mL); Ecstacy Urine VISTA NEGATIVE (< 500 ng/mL); Methadone Urine VISTA NEGATIVE (< 300 ng/mL); PCP Urine VISTA NEGATIVE (< 25 ng/mL); THC Urine VISTA NEGATIVE (< 50 ng/mL); Vista UDS pH Range 5
== END ==
PROVIDERS: PCP Family Medicine; Referring Provider Anesthesiology Pain Medicine; Visit Provider Anesthesiology Pain Medicine
DX: F11.20 Opioid dependence, uncomplicated (principal)
CPT/HCPCS: 80307

== ENCOUNTER → 2021-10-16 12:03 | Outpatient (CLI) | payer OTHER, SELFPAY ==
--- NOTE | 2021-10-16 12:08 | BI_ITS ---
MAMMOGRAPHY - BILATERAL SCREENING REASON FOR EXAM: Female, 46 years old. Routine annual screening examination. PERTINENT HISTORY: Aunts with breast cancer. TECHNIQUE: Digital bilateral breast mukesh (3D mammographic acquisition) in the CC and MLO projections. 2-D mediolateral oblique (MLO) and craniocaudad (CC) views of both breasts were obtained. CAD: Full Field Digital Mammography with Computer Added Detection was performed. COMPARISON: Comparison is made with prior study dated 08/16/2020 and 03/08/2019. FINDINGS: Breast Composition: There are scattered areas of fibroglandular density. There are no dominant masses or suspicious calcifications. Stable benign-appearing small nodules in the lateral superior aspect of the right breast suggestive of small lymph nodes. No other significant abnormalities are identified. There has been no significant change since the prior study. BI/SCRN MAMM (CAD)W/MUKESH BILAT IMPRESSION: Stable bilateral screening mammogram. Yearly follow-up mammogram recommended. (A) ASSESSMENT CATEGORY: BIRADS Category 2: Benign. A letter regarding these results will be sent to the patient by the facility within 30 days. Approximately 10% of breast cancers are not detected by mammography. A normal mammogram should not delay biopsy of a clinically suspicious abnormality. [id number] Electronically Signed: Juan M Wall MD at 14:01 EST , Service support ,
== END ==
PROVIDERS: PCP Family Medicine; Referring Provider Nurse Practitioner Family; Visit Provider Nurse Practitioner Family
DX: Z12.31 Encounter for screening mammogram for malignant neoplasm of breast (principal)
CPT/HCPCS: 77063; 77067

== ENCOUNTER 2021-12-16 09:22 | Outpatient (CLI) | payer OTHER, SELFPAY ==
[2021-12-16 10:34] LABS: Absolute Lymphocyte Count 3.94 X10^3/uL (0.83-4.51); Absolute Neutrophil Count 7.2 X10^3/uL (2.0-7.7); Basophil# 0.09 X10^3/uL; Basophil% 0.8 % (0-1); Eosinophil# 0.07 X10^3/uL; Eosinophils% 0.6 % (0-5); Hematocrit 41.1 % (37-47); Hemoglobin 12.7 g/dL (12.0-15.0); Lymphocyte # 3.94 X10^3/ul (0.83-4.51); Lymphocyte % 33.1 % (19-41); Mean Corp Hgb Conc 30.9 g/dL (32-36); Mean Corpuscular Volume 87.3 fL (81-99); Mean Platelet Vol. 10.2 fl (6.2-12.0); Monocyte# 0.63 X10^3/uL; Monocyte% 5.3 % (0-10); NRBC Flagged by Analyzer 0 % (0-5); Neutrophil # 7.15 X10^3/uL (2.7-7.7); Neutrophil % 59.9 % (47-70); Platelet Count 324 K/mm3 (150-450); RBC Distribution Width CV 15.7 % (11.6-14.6); RBC Distribution Width SD 49.7 fl (35.1-43.9); Red Blood Count 4.71 M/mm3 (4.2-5.4); White Blood Count 11.9 K/mm3 (4.4-11.0)
[2021-12-16 11:04] LABS: Vitamin B12 540 pg/mL (211-911); Vitamin D,25 Hydroxy 46.2 ng/mL
[2021-12-16 11:41] LABS: ALB/GLOB Ratio 0.8 RATIO (0.9-2.4); AST(SGOT) 32 U/L (15-37); Alanine Aminotransfer ALT/SGPT 42 U/L (13-56); Albumin, Serum 3.3 g/dL (3.2-5.0); Alkaline Phosphatase 127 U/L (45-117); Anion Gap 7 (5-15); BUN 14 mg/dL (7-18); Calcium,Total 9.2 mg/dL (8.5-10.1); Chloride 100 mmol/L (98-107); Cholesterol 250 mg/dL (200); Creatinine, Serum 0.56 mg/dL (0.55-1.02); EST Glomerular Filtration Rate 123 mL/min (>60); Est Glom Filt Rate - Afr Amer 149 mL/min (>60); Globulin 4.4 g/dL (2.2-4.2); Glucose 110 mg/dL (74-106); High Density Lipoprotein 54 mg/dL; Potassium 4.1 mmol/L (3.5-5.1); Protein, Total 7.7 g/dL (6.4-8.2); Sodium Level 135 mmol/L (136-145); Triglycerides 289 mg/dL; Very Low Density Lipoprotein 58 mg/dL (5-40)
== END 2021-12-16 23:59 | disposition home or self-care (01) ==
LOC: MTLAB 09:24
PROVIDERS: PCP Nurse Practitioner Family; Referring Provider Nurse Practitioner Family; Visit Provider Nurse Practitioner Family
DX: I10 Essential (primary) hypertension (principal); M06.4 Inflammatory polyarthropathy; G25.81 Restless legs syndrome; E55.9 Vitamin D deficiency, unspecified; M79.7 Fibromyalgia; R51.9 Headache, unspecified; K21.9 Gastro-esophageal reflux disease without esophagitis; Z79.899 Other long term (current) drug therapy; Z13.6 Encounter for screening for cardiovascular disorders
CPT/HCPCS: 36415; 80053; 80061; 82306; 82607; 82746; 85025

== ENCOUNTER → 2022-02-19 | Outpatient (CLI) | payer OTHER, SELFPAY ==
[2022-02-19 12:55] LABS: ALB/GLOB Ratio 0.9 RATIO (0.9-2.4); AST(SGOT) 76 U/L (15-37); Alanine Aminotransfer ALT/SGPT 98 U/L (13-56); Albumin, Serum 3.7 g/dL (3.2-5.0); Alkaline Phosphatase 114 U/L (45-117); Anion Gap 9 (5-15); BUN 12 mg/dL (7-18); Calcium,Total 8.8 mg/dL (8.5-10.1); Chloride 100 mmol/L (98-107); Creatinine, Serum 0.63 mg/dL (0.55-1.02); EST Glomerular Filtration Rate 107 mL/min (>60); Est Glom Filt Rate - Afr Amer 129 mL/min (>60); Globulin 3.9 g/dL (2.2-4.2); Glucose 116 mg/dL (74-106); Potassium 3.9 mmol/L (3.5-5.1); Protein, Total 7.6 g/dL (6.4-8.2); Sodium Level 134 mmol/L (136-145)
[2022-02-19 15:13] LABS: Absolute Lymphocyte Count 3.74 X10^3/uL (0.83-4.51); Absolute Neutrophil Count 4.4 X10^3/uL (2.0-7.7); Basophil# 0.12 X10^3/uL; Basophil% 1.3 % (0-1); Eosinophil# 0.29 X10^3/uL; Eosinophils% 3.1 % (0-5); Hemoglobin 12.6 g/dL (12.0-15.0); Lymphocyte # 3.74 X10^3/ul (0.83-4.51); Lymphocyte % 40.5 % (19-41); Mean Corp Hgb Conc 31.5 g/dL (32-36); Mean Corpuscular Hgb 27.7 pg (27.0-32.0); Mean Corpuscular Volume 87.9 fL (81-99); Mean Platelet Vol. 11.3 fl (6.2-12.0); Monocyte# 0.65 X10^3/uL; NRBC Flagged by Analyzer 0 % (0-5); Neutrophil # 4.39 X10^3/uL (2.7-7.7); Neutrophil % 47.7 % (47-70); Platelet Count 288 K/mm3 (150-450); RBC Distribution Width CV 15.6 % (11.6-14.6); RBC Distribution Width SD 49.6 fl (35.1-43.9); Red Blood Count 4.55 M/mm3 (4.2-5.4); White Blood Count 9.2 K/mm3 (4.4-11.0)
== END | disposition home or self-care (01) ==
LOC: MTLAB 09:54
PROVIDERS: PCP Nurse Practitioner Family; Referring Provider Internal Medicine Rheumatology; Visit Provider Internal Medicine Rheumatology
DX: M06.4 Inflammatory polyarthropathy (principal); M79.7 Fibromyalgia; G25.81 Restless legs syndrome; I10 Essential (primary) hypertension; R51.9 Headache, unspecified; K21.9 Gastro-esophageal reflux disease without esophagitis; Z79.899 Other long term (current) drug therapy
CPT/HCPCS: 36415; 80053; 85025

== ENCOUNTER → 2022-03-18 | Outpatient (CLI) | payer OTHER, SELFPAY ==
--- NOTE | 2022-03-18 09:28 | US_ITS ---
STUDY: ABDOMINAL ULTRASOUND - RIGHT UPPER QUADRANT REASON FOR VISIT: Female, 46 years old ELEVATED ENZYMES TECHNIQUE: Ultrasound evaluation of the right upper quadrant was performed with real-time and static davison-scale imaging. TECHNICAL QUALITY: Limited. Examination limited due to obesity. COMPARISON: None. FINDINGS: Liver: The liver measures 17.2 cm. There is increased echogenicity consistent with fatty infiltration. The bile ducts are within normal limits. There is hepatic color flow. The direction of portal flow is hepatopetal. There is no demonstrated mass lesion. Gallbladder: The patient is status post cholecystectomy. Common Bile Duct (C.B.D.): The common bile duct measures 4.8 mm. Pancreas: Normal size of the head, body and tail of the pancreas. There is normal echogenicity of the pancreas. There is no demonstrated pancreatic mass or cyst. Right Kidney: Normal size of the right kidney. The right kidney measures 12.7 cm x 5.2 cm x 5.7 cm. Normal renal cortex. The right cortex measures 1.9 cm. There is no demonstrated renal mass or cyst. There is no right hydronephrosis. US/Liver IMPRESSION: Fatty infiltration of the liver. Electronically Signed: Juan M Wall MD at 10:08 EDT ,
== END | disposition home or self-care (01) ==
LOC: US 09:26
PROVIDERS: PCP Nurse Practitioner Family; Referring Provider Internal Medicine Rheumatology; Visit Provider Internal Medicine Rheumatology
DX: M06.4 Inflammatory polyarthropathy (principal); Z79.899 Other long term (current) drug therapy
CPT/HCPCS: 76705

== ENCOUNTER → 2022-03-24 | Outpatient (CLI) | payer OTHER, SELFPAY ==
[2022-03-24 12:22] LABS: Absolute Lymphocyte Count 3.36 X10^3/uL (0.83-4.51); Absolute Neutrophil Count 4.5 X10^3/uL (2.0-7.7); Basophil# 0.06 X10^3/uL; Basophil% 0.7 % (0-1); Eosinophils% 3.4 % (0-5); Hematocrit 43.2 % (37-47); Hemoglobin 13.5 g/dL (12.0-15.0); Lymphocyte # 3.36 X10^3/ul (0.83-4.51); Lymphocyte % 37.9 % (19-41); Mean Corp Hgb Conc 31.3 g/dL (32-36); Mean Corpuscular Hgb 27.7 pg (27.0-32.0); Mean Corpuscular Volume 88.7 fL (81-99); Mean Platelet Vol. 11.6 fl (6.2-12.0); Monocyte# 0.58 X10^3/uL; Monocyte% 6.5 % (0-10); NRBC Flagged by Analyzer 0 % (0-5); Neutrophil # 4.54 X10^3/uL (2.7-7.7); Neutrophil % 51.2 % (47-70); Platelet Count 288 K/mm3 (150-450); RBC Distribution Width CV 14.1 % (11.6-14.6); RBC Distribution Width SD 45.4 fl (35.1-43.9); Red Blood Count 4.87 M/mm3 (4.2-5.4); White Blood Count 8.9 K/mm3 (4.4-11.0)
[2022-03-24 12:48] LABS: ALB/GLOB Ratio 0.9 RATIO (0.9-2.4); AST(SGOT) 39 U/L (15-37); Alanine Aminotransfer ALT/SGPT 59 U/L (13-56); Albumin, Serum 3.7 g/dL (3.2-5.0); Alkaline Phosphatase 130 U/L (45-117); Anion Gap 8 (5-15); BUN 13 mg/dL (7-18); BUN/Creat Ratio 20.4 RATIO (10-20); Calcium,Total 9.6 mg/dL (8.5-10.1); Chloride 105 mmol/L (98-107); Creatinine, Serum 0.64 mg/dL (0.55-1.02); EST Glomerular Filtration Rate 106 mL/min (>60); Est Glom Filt Rate - Afr Amer 128 mL/min (>60); Glucose 123 mg/dL (74-106); Potassium 4.2 mmol/L (3.5-5.1); Protein, Total 7.7 g/dL (6.4-8.2); Sodium Level 139 mmol/L (136-145)
== END | disposition home or self-care (01) ==
LOC: MTLAB 10:46
PROVIDERS: PCP Nurse Practitioner Family; Referring Provider Internal Medicine Rheumatology; Visit Provider Internal Medicine Rheumatology
DX: M06.4 Inflammatory polyarthropathy (principal); M79.7 Fibromyalgia; G25.81 Restless legs syndrome; I10 Essential (primary) hypertension; R51.9 Headache, unspecified; K21.9 Gastro-esophageal reflux disease without esophagitis; Z79.899 Other long term (current) drug therapy
CPT/HCPCS: 36415; 80053; 85025

== ENCOUNTER → 2022-06-04 | Outpatient (CLI) | payer OTHER, SELFPAY ==
--- NOTE | 2022-06-04 09:58 | US_ITS ---
INDICATION: INFLAMMATORY POLYARTHROPATHY EXAMINATION: Ultrasound US Abdomen Limited (quadrant) TECHNIQUE: Martinez scale imaging with graded compression and color doppler was obtained of the right lower quadrant. COMPARISON: None. FINDINGS: The liver demonstrates increased heterogeneous echogenicity, unremarkable vascularity but no evidence of hepatic masses is seen. No evidence of intrahepatic biliary dilatation is seen. The gallbladder is surgically absent. The common bile duct measures 0.4 cm. Limited evaluation of the pancreas, tail was not visualized. The visualized head and neck and body demonstrates unremarkable echogenicity with no evidence of masses. The right kidney demonstrates unremarkable echogenicity, unremarkable vascularity, unremarkable size, shape and configuration with no evidence of masses, no evidence of right hydronephrosis is seen. The right kidney measures 13.0 x 6.5 x 5.1 cm. The right renal cortex measures 1.4 cm. US/Liver IMPRESSION: Hepatic steatosis, no evidence of liver masses. Electronically Signed: Enrico Cohn MD at 12:32 EDT ,
== END | disposition home or self-care (01) ==
PROVIDERS: PCP Nurse Practitioner Family; Referring Provider Internal Medicine Rheumatology; Visit Provider Internal Medicine Rheumatology
DX: M06.4 Inflammatory polyarthropathy (principal); Z79.899 Other long term (current) drug therapy
CPT/HCPCS: 76705

== ENCOUNTER → 2022-06-08 | Outpatient (CLI) | payer OTHER, SELFPAY ==
[2022-06-08 10:06] LABS: Absolute Lymphocyte Count 3.31 X10^3/uL (0.83-4.51); Absolute Neutrophil Count 3.3 X10^3/uL (2.0-7.7); Basophil# 0.09 X10^3/uL; Basophil% 1.2 % (0-1); Eosinophil# 0.19 X10^3/uL; Eosinophils% 2.5 % (0-5); Hematocrit 41.6 % (37-47); Hemoglobin 13.2 g/dL (12.0-15.0); Lymphocyte # 3.31 X10^3/ul (0.83-4.51); Lymphocyte % 43.7 % (19-41); Mean Corp Hgb Conc 31.7 g/dL (32-36); Mean Corpuscular Hgb 27.2 pg (27.0-32.0); Mean Corpuscular Volume 85.6 fL (81-99); Mean Platelet Vol. 10.8 fl (6.2-12.0); Monocyte# 0.67 X10^3/uL; Monocyte% 8.8 % (0-10); NRBC Flagged by Analyzer 0 % (0-5); Neutrophil % 43.5 % (47-70); Platelet Count 271 K/mm3 (150-450); RBC Distribution Width CV 14.6 % (11.6-14.6); RBC Distribution Width SD 45.1 fl (35.1-43.9); Red Blood Count 4.86 M/mm3 (4.2-5.4); White Blood Count 7.6 K/mm3 (4.4-11.0)
[2022-06-08 10:32] LABS: ALB/GLOB Ratio 0.9 RATIO (0.9-2.4); AST(SGOT) 17 U/L (15-37); Alanine Aminotransfer ALT/SGPT 30 U/L (13-56); Albumin, Serum 3.4 g/dL (3.2-5.0); Alkaline Phosphatase 118 U/L (45-117); Anion Gap 4 (5-15); BUN 13 mg/dL (7-18); BUN/Creat Ratio 24.5 RATIO (10-20); Chloride 104 mmol/L (98-107); Creatinine, Serum 0.53 mg/dL (0.55-1.02); EST Glomerular Filtration Rate 130 mL/min (>60); Est Glom Filt Rate - Afr Amer 158 mL/min (>60); Globulin 3.9 g/dL (2.2-4.2); Glucose 115 mg/dL (74-106); Potassium 4.2 mmol/L (3.5-5.1); Protein, Total 7.3 g/dL (6.4-8.2); Sodium Level 139 mmol/L (136-145)
== END | disposition home or self-care (01) ==
LOC: MTLAB 07:44
PROVIDERS: PCP Nurse Practitioner Family; Referring Provider Internal Medicine Rheumatology; Visit Provider Internal Medicine Rheumatology
DX: M06.4 Inflammatory polyarthropathy (principal); M79.7 Fibromyalgia; G25.81 Restless legs syndrome; I10 Essential (primary) hypertension; R51.9 Headache, unspecified; K21.9 Gastro-esophageal reflux disease without esophagitis; M21.40 Flat foot [pes planus] (acquired), unspecified foot; Z79.899 Other long term (current) drug therapy
CPT/HCPCS: 36415; 80053; 85025

== ENCOUNTER 2022-07-12 10:30 | Outpatient (RCR) | payer OTHER, SELFPAY ==
--- NOTE | 2022-05-24 15:42 | HP.PTEVAL_ITS ---
Patient's Visit Information EVAN TERRAZAS is a 46 year old F referred to Physical Therapy by Dr. Zuri Armenta MD with a diagnosis of Back and Leg Pain. Date of Evaluation: 05/24/22 Physical Therapist: STUART Roy - Visit Plan Frequency: 2x /Week Duration: 2 Months Plan: 2X/ week for 4-8 weeks for AT for core stability, trunk ROM, postural exercises, LE including hip strengthening with HEP - Subjective Pt is here to do PT because wants an MRI. Pt has had back issues in the past and PT in the past and injections but they are not lasting now. Now she is getting pain down the left down to her knee or a surge once in awhile down the calf area. She has had pain in the front and back of the leg. She has a pressure/twisting like pain in the back and there all the time. Sometimes it is more intense than others. Pt can not stay comfortable and hard to sleep. She also has FM and RA. Pt would prefer water therapy. Stair: pain in her back with stairs and she feels that going down is worse than going up stairs. Sit to stand: she has back pain doing that. She still moves around but just in a lot of pain. She takes a lot of supplements to help with pain. Pt reports that she does have restless leg and it is always on the L and now even during the day it is getting worse. - Pain back pain Pain Intensity (Out of 10): 7 L leg pain Pain Intensity (Out of 10): 5 - Objective Gait: Pt walks with decrease stance time on the L LE. During treatment session, pt is moving around a lot and changing position due to pain. Trunk AROM: flexion 50% (increase pain), Ext 50% (increase pain)m SB B 50%, Rot B 50% (with increase pain). LE MMT: R knee ext 35.3 and L 24, R knee flex 17.2 and L 14.7, Hip flex R 15.8 and L 12.3. Patllar DTR B 2+/3. + SLUMP test on the B sides but worse on the L. + SLR test on the L and nothing on the R. - Balance/Special Test Scores Oswestry Low Back Score: 21 - Goals Goal 1:: I HEP Goal Time Frame: 6-8 Weeks Goal 2:: Decrease back and L leg pain to 4/10 and 2/10 respectively with ADL's Goal Time Frame: 6-8 Weeks Goal 3:: Increase L LE strength to improve overall function (at time of eval, L LE R knee ext 35.3 and L 24, R knee flex 17.2 and L 14.7, Hip flex R 15.8 and L 12.3). Goal 4:: Be able to sleep better and be able to not have to shift her position throughout the day as much per subjective Goal Time Frame: 6-8 Weeks - Rehabilitation Potential Rehabilitation Potential: Good - Anticipated Interventions Patient/Client Instruction: Educate patient on: Condition, Plan of Care For the Purpose of:: To decrease pain, To increase ROM, To improve nutrient delivery to tissue, To improve muscle performance and motor function, To improve ability to perform ADL's, To increase tolerance to activity/condition/position, To improve performance and independence with ADL's, To decrease level of supervision to perform tasks, To improve ability of physical actions for home/community/work/leisure, To improve gait and locomotor functions, To improve health of tissue, To decrease soft tissue restriction, To improve endurance Therapeutic Exercise to Include: Strength training, Balance training, Coordinat ion, Body mechanics, Postural training, Flexibilty training, Gait and locomotor training, Neuromotor development, In an aquatic setting, Active ROM, Dynamic Lumbar Stabilization, Scapular Strength/Stabilization For the Purpose of:: To decrease pain, To increase ROM, To improve nutrient delivery to tissue, To improve muscle performance and motor function, To improve ability to perform ADL's, To increase tolerance to activity/condition/position, To improve performance and independence with ADL's, To decrease level of supervision to perform tasks, To improve ability of physical actions for home/community/work/leisure, To improve gait and locomotor functions, To improve health of tissue, To decrease soft tissue restriction, To increase flexibility/ROM, To improve endurance, To improve balance Thank you for the opportunity to evaluate your patient. For Medicare and Medicare HMO plans, please review the plan of care and approve it. It will need to be FAXED BACK to us at [phone] for Medicare purposes. For Medicare only, by signing this I certify the plan of care. Please let me know if there are questions or concerns regarding this plan of care. Physician Signature: Date:
--- NOTE | 2022-07-12 10:51 | HP.PTDCSUM_ITS ---
It has been my pleasure to treat EVAN TERRAZAS referred by Dr. Zuri Armenta MD, with the diagnosis of Back and Leg Pain for a total of 14 visit(s). Discharge Date: 07/12/22 Please see the following information for a summary of their discharge status. Subjective: Pt likes the pool a lot and she likes the instructor. Pt has not noticed a big difference. Pt has an appt today with Dr Armenta. She gets some relief in the pool but it does not last. She feels that she has gotten a little stronger. back pain Pain Intensity (Out of 10): 7 L leg pain Pain Intensity (Out of 10): 7 % Improvement: 15 Objective/Function: L LE R knee ext 35.3 and L 24, R knee flex 17.2 and L 14.7, Hip flex R 15.9 and L 12.9). B LE strength remains the same +/a few ounces. No change in sleep patterns. Goal 1:: I HEP Goal Progress: Goal Met Goal 2:: Decrease back and L leg pain to 4/10 and 2/10 respectively with ADL's Goal Progress: Not Progressing Goal 3:: Increase L LE strength to improve overall function (at time of eval, L LE R knee ext 35.3 and L 24, R knee flex 17.2 and L 14.7, Hip flex R 15.8 and L 12.3). Goal Progress: Not Progressing Goal 4:: Be able to sleep better and be able to not have to shift her position throughout the day as much per subjective Goal Progress: Not Progressing Plan: DC PT to HEP and return to Dr Armenta. Discharge Comments: DC PT to [facility] and back to . If there are questions or concerns regarding this patient's physical therapy, please feel free to call me at [phone]. Thank you for the referral of this patient. Sincerely, Kristin Johnson, MPT Balance/Gait/Functional tests - Balance/Special Test Scores Oswestry Low Back Score: 25
== END 2022-07-12 19:00 | disposition home or self-care (01) ==
LOC: PT 10:30
PROVIDERS: PCP Nurse Practitioner Family; Referring Provider Anesthesiology Pain Medicine; Visit Provider Anesthesiology Pain Medicine
DX: M54.9 Dorsalgia, unspecified (principal); M79.606 Pain in leg, unspecified
CPT/HCPCS: 97113; 97161; 97530

== ENCOUNTER → 2022-08-02 | Outpatient (CLI) | payer OTHER, SELFPAY ==
[2022-08-02 12:29] LABS: Absolute Lymphocyte Count 2.61 X10^3/uL (0.83-4.51); Absolute Neutrophil Count 5.2 X10^3/uL (2.0-7.7); Basophil# 0.08 X10^3/uL; Basophil% 0.9 % (0-1); Eosinophil# 0.09 X10^3/uL; Eosinophils% 1.1 % (0-5); Hematocrit 43.5 % (37-47); Hemoglobin 13.1 g/dL (12.0-15.0); Lymphocyte # 2.61 X10^3/ul (0.83-4.51); Lymphocyte % 30.6 % (19-41); Mean Corp Hgb Conc 30.1 g/dL (32-36); Mean Corpuscular Hgb 26.2 pg (27.0-32.0); Mean Platelet Vol. 10.4 fl (6.2-12.0); Monocyte% 5.9 % (0-10); NRBC Flagged by Analyzer 0 % (0-5); Platelet Count 291 K/mm3 (150-450); RBC Distribution Width CV 14.7 % (11.6-14.6); RBC Distribution Width SD 46.7 fl (35.1-43.9); White Blood Count 8.5 K/mm3 (4.4-11.0)
[2022-08-02 12:56] LABS: ALB/GLOB Ratio 0.9 RATIO (0.9-2.4); AST(SGOT) 21 U/L (15-37); Alanine Aminotransfer ALT/SGPT 36 U/L (13-56); Albumin, Serum 3.5 g/dL (3.2-5.0); Alkaline Phosphatase 115 U/L (45-117); Anion Gap 8 (5-15); BUN 12 mg/dL (7-18); BUN/Creat Ratio 19.1 RATIO (10-20); Calcium,Total 9.4 mg/dL (8.5-10.1); Chloride 105 mmol/L (98-107); Creatinine, Serum 0.63 mg/dL (0.55-1.02); EST Glomerular Filtration Rate 107 mL/min (>60); Est Glom Filt Rate - Afr Amer 130 mL/min (>60); Globulin 4.1 g/dL (2.2-4.2); Glucose 118 mg/dL (74-106); Potassium 4.5 mmol/L (3.5-5.1); Protein, Total 7.6 g/dL (6.4-8.2); Sodium Level 139 mmol/L (136-145)
== END | disposition home or self-care (01) ==
LOC: MTLAB 10:35
PROVIDERS: PCP Nurse Practitioner Family; Referring Provider Internal Medicine Rheumatology; Visit Provider Internal Medicine Rheumatology
DX: M06.4 Inflammatory polyarthropathy (principal); M79.7 Fibromyalgia; G25.81 Restless legs syndrome; I10 Essential (primary) hypertension; R51.9 Headache, unspecified; K21.9 Gastro-esophageal reflux disease without esophagitis; M21.40 Flat foot [pes planus] (acquired), unspecified foot; K76.0 Fatty (change of) liver, not elsewhere classified; Z79.899 Other long term (current) drug therapy
CPT/HCPCS: 36415; 80053; 85025

== ENCOUNTER → 2022-08-10 | Outpatient (CLI) | payer OTHER, SELFPAY ==
[2022-08-10 12:23] LABS: Amphetamine Urine VISTA NEGATIVE (<1000 ng/mL); Barbiturate Urine VISTA NEGATIVE (< 200 ng/mL); Benzodiazepine Urine VISTA NEGATIVE (< 200 ng/mL); Cocaine Urine VISTA NEGATIVE (< 300 ng/mL); Ecstacy Urine VISTA NEGATIVE (< 500 ng/mL); Methadone Urine VISTA NEGATIVE (< 300 ng/mL); PCP Urine VISTA NEGATIVE (< 25 ng/mL); THC Urine VISTA NEGATIVE (< 50 ng/mL); Vista UDS pH Range 5
== END | disposition home or self-care (01) ==
PROVIDERS: PCP Nurse Practitioner Family; Visit Provider Anesthesiology Pain Medicine
DX: F11.20 Opioid dependence, uncomplicated (principal)
CPT/HCPCS: 80307

== ENCOUNTER → 2022-08-21 | Outpatient (CLI) | payer OTHER, SELFPAY ==
--- NOTE | 2022-08-21 10:23 | MRI_ITS ---
STUDY: MRI LUMBAR SPINE WITHOUT CONTRAST REASON FOR EXAM: Female, 46 years old. RADICULOPATHY TECHNIQUE: Standardized fat and water weighted pulse sequences were obtained in the sagittal and axial planes. COMPARISON: None FINDINGS: T12-L1: Normal endplates. Normal disc height, hydration and morphology. Normal bilateral facet joints. Normal central canal and bilateral lateral recesses. Normal bilateral intervertebral neural foramina. Normal lumbar lordosis. There is no substantial scoliosis. Normal conus medullaris that terminates at the L1 L1-2: Normal endplates. Normal disc height, hydration and morphology. Normal bilateral facet joints. Normal central canal and bilateral lateral recesses. Normal bilateral intervertebral neural foramina. Incidental 5 mm small osseous hemangiomas noted on L1 posteriorly. L2-3: Normal endplates. Normal disc height, hydration and morphology. Normal bilateral facet joints. Normal central canal and bilateral lateral recesses. Normal bilateral intervertebral neural foramina. L3-4: Normal endplates. Normal disc height, hydration and morphology. Normal bilateral facet joints. Normal central canal and bilateral lateral recesses. Normal bilateral intervertebral neural foramina. L4-5: Disc desiccation is present with central disc protrusion without significant spinal canal narrowing or foraminal narrowing. Bilateral facet mild arthropathy at this level is present. L5-S1: Degenerative disc changes with near complete loss of disc space and MODIC endplate changes are present. There is a broad-based degenerative mild disc bulge with minimal abutment of the exiting nerve roots bilaterally. Normal visualized sacral ala. Normal visualized paraspinous soft tissue structures. MRI/Spine Lumbar (Routine) IMPRESSION: 1. L4/5 central mild disc protrusion with no significant spinal canal narrowing or foraminal narrowing. 2. L5/S1 degenerative disc changes with near complete loss of disc space with small broad-based disc bulge minimally abutting the exiting nerve roots bilaterally. Electronically Signed: Jonathan Shields DO at 11:21 EDT ,
== END | disposition home or self-care (01) ==
LOC: MRI 10:19
PROVIDERS: PCP Nurse Practitioner Family; Referring Provider Anesthesiology Pain Medicine; Visit Provider Anesthesiology Pain Medicine
DX: M54.16 Radiculopathy, lumbar region (principal)
CPT/HCPCS: 72148

== ENCOUNTER → 2022-12-13 | Outpatient (CLI) | payer OTHER, SELFPAY ==
[2022-12-13 12:15] LABS: Absolute Lymphocyte Count 5.15 X10^3/uL (0.83-4.51); Absolute Neutrophil Count 8.4 X10^3/uL (2.0-7.7); Basophil# 0.08 X10^3/uL; Basophil% 0.5 % (0-1); Eosinophil# 0.03 X10^3/uL; Eosinophils% 0.2 % (0-5); Hematocrit 42.5 % (37-47); Hemoglobin 13.6 g/dL (12.0-15.0); Lymphocyte # 5.15 X10^3/ul (0.83-4.51); Lymphocyte % 34.7 % (19-41); Mean Corpuscular Hgb 28.2 pg (27.0-32.0); Mean Platelet Vol. 9.8 fl (6.2-12.0); Monocyte# 1.09 X10^3/uL; Monocyte% 7.3 % (0-10); NRBC Flagged by Analyzer 0 % (0-5); Neutrophil # 8.42 X10^3/uL (2.7-7.7); Neutrophil % 56.7 % (47-70); POSITIVE DIFFERENTIAL YES; Platelet Count 348 K/mm3 (150-450); RBC Distribution Width CV 14.4 % (11.6-14.6); RBC Distribution Width SD 46.3 fl (35.1-43.9); Red Blood Count 4.83 M/mm3 (4.2-5.4); White Blood Count 14.9 K/mm3 (4.4-11.0)
[2022-12-13 12:18] LABS: Differential Indicated SCAN CRITERIA MET
[2022-12-13 12:46] LABS: ALB/GLOB Ratio 0.9 RATIO (0.9-2.4); AST(SGOT) 17 U/L (15-37); Alanine Aminotransfer ALT/SGPT 40 U/L (13-56); Albumin, Serum 3.6 g/dL (3.2-5.0); Alkaline Phosphatase 97 U/L (45-117); Anion Gap 9 (5-15); BUN 20 mg/dL (7-18); BUN/Creat Ratio 27.3 RATIO (10-20); Calcium,Total 9.5 mg/dL (8.5-10.1); Chloride 101 mmol/L (98-107); Creatinine, Serum 0.73 mg/dL (0.55-1.02); EST Glomerular Filtration Rate 90 mL/min (>60); Est Glom Filt Rate - Afr Amer 109 mL/min (>60); Globulin 3.8 g/dL (2.2-4.2); Glucose 108 mg/dL (74-106); Potassium 3.7 mmol/L (3.5-5.1); Protein, Total 7.4 g/dL (6.4-8.2); Sodium Level 136 mmol/L (136-145)
== END | disposition home or self-care (01) ==
PROVIDERS: PCP Nurse Practitioner Family; Referring Provider Internal Medicine Rheumatology; Visit Provider Internal Medicine Rheumatology
DX: M06.4 Inflammatory polyarthropathy (principal); M79.7 Fibromyalgia; I10 Essential (primary) hypertension; R51.9 Headache, unspecified; K21.9 Gastro-esophageal reflux disease without esophagitis; M21.40 Flat foot [pes planus] (acquired), unspecified foot; K76.0 Fatty (change of) liver, not elsewhere classified; Z79.899 Other long term (current) drug therapy
CPT/HCPCS: 36415; 80053; 85025

== ENCOUNTER → 2023-01-26 | Outpatient (CLI) | payer OTHER, SELFPAY ==
--- NOTE | 2023-01-26 10:40 | RAD_ITS ---
INDICATION: R SHOULDER PAIN EXAMINATION/TECHNIQUE: X-RAY - RIGHT XR Shoulder 4 VIEWS COMPARISON: None. FINDINGS: SOFT TISSUES: No soft tissue swelling or gas. Calcification lateral to the humerus likely due to calcific tendinopathy. No radiopaque foreign body. BONES/JOINTS: No acute fracture or subluxation.. Normal alignment. Preservation of the joint space.. No sclerotic or destructive changes observed. RAD/Shoulder min 2 Views IMPRESSION: Calcification lateral to the humerus likely due to calcific tendinopathy. Electronically Signed: Bar Byrnes DO at 17:46 EDT ,
== END | disposition home or self-care (01) ==
PROVIDERS: PCP Nurse Practitioner Family; Referring Provider Anesthesiology Pain Medicine; Visit Provider Anesthesiology Pain Medicine
DX: M25.511 Pain in right shoulder (principal)
CPT/HCPCS: 73030

== ENCOUNTER → 2023-03-18 | Outpatient (CLI) | payer OTHER, SELFPAY ==
[2023-03-18 10:19] LABS: Absolute Lymphocyte Count 3.25 X10^3/uL (0.83-4.51); Basophil# 0.08 X10^3/uL; Eosinophils% 1.2 % (0-5); Hematocrit 42.1 % (37-47); Lymphocyte # 3.25 X10^3/ul (0.83-4.51); Lymphocyte % 39.9 % (19-41); Mean Corp Hgb Conc 30.9 g/dL (32-36); Mean Corpuscular Hgb 27.3 pg (27.0-32.0); Mean Corpuscular Volume 88.3 fL (81-99); Mean Platelet Vol. 10.5 fl (6.2-12.0); Monocyte% 8.6 % (0-10); NRBC Flagged by Analyzer 0 % (0-5); Neutrophil # 3.96 X10^3/uL (2.7-7.7); Neutrophil % 48.6 % (47-70); Platelet Count 285 K/mm3 (150-450); RBC Distribution Width CV 14.4 % (11.6-14.6); RBC Distribution Width SD 46.1 fl (35.1-43.9); Red Blood Count 4.77 M/mm3 (4.2-5.4); White Blood Count 8.2 K/mm3 (4.4-11.0)
[2023-03-18 10:44] LABS: ALB/GLOB Ratio 0.9 RATIO (0.9-2.4); AST(SGOT) 26 U/L (15-37); Alanine Aminotransfer ALT/SGPT 36 U/L (13-56); Albumin, Serum 3.5 g/dL (3.2-5.0); Alkaline Phosphatase 99 U/L (45-117); Anion Gap 5 (5-15); BUN 14 mg/dL (7-18); BUN/Creat Ratio 20.5 RATIO (10-20); Calcium,Total 9.3 mg/dL (8.5-10.1); Chloride 102 mmol/L (98-107); Creatinine, Serum 0.68 mg/dL (0.55-1.02); EST Glomerular Filtration Rate 97 mL/min (>60); Est Glom Filt Rate - Afr Amer 117 mL/min (>60); Globulin 3.7 g/dL (2.2-4.2); Glucose 137 mg/dL (74-106); Potassium 4.1 mmol/L (3.5-5.1); Protein, Total 7.2 g/dL (6.4-8.2); Sodium Level 134 mmol/L (136-145)
== END | disposition home or self-care (01) ==
LOC: MTLAB 09:25
PROVIDERS: PCP Nurse Practitioner Family; Referring Provider Internal Medicine Rheumatology; Visit Provider Internal Medicine Rheumatology
DX: M06.4 Inflammatory polyarthropathy (principal); Z79.899 Other long term (current) drug therapy
CPT/HCPCS: 36415; 80053; 85025

== ENCOUNTER 2024-02-14 05:54 | Emergency (ER) | payer BC, SELFPAY ==
[2024-02-14 05:55] VITALS: BP 127/105; PULSE 100; RESP 18; TEMP 37.3; O2SAT 97; BMI 41.8
--- NOTE | 2024-02-14 06:20 | CT_ITS ---
EXAM: CT ABDOMEN AND PELVIS WITH INTRAVENOUS CONTRAST CLINICAL INDICATION: Abdominal pain. TECHNIQUE: Helically acquired images were obtained of the abdomen and pelvis with intravenous contrast. This CT exam was performed using one or more of the following dose reduction techniques: automated exposure control, adjustment of the mA and/or kV according to patient size, and/or use of iterative reconstruction technique. CONTRAST: IV 100mL [id number] RADIATION DOSE: CTDIvol = 21.96 mGy, DLP = 1909.25 mGy-cm COMPARISON: CTA chest 10/03/2021. No prior CT abdomen and pelvis for comparison. FINDINGS: LOWER THORAX: Unremarkable. Lung bases are clear. No cardiomegaly. No significant pericardial effusion. ABDOMEN: LIVER: Moderate diffuse fatty infiltration of the liver. Hepatomegaly measuring 20 cm long. GALLBLADDER AND BILE DUCTS: Surgical clips in the gallbladder fossa area from cholecystectomy. No intrahepatic or extrahepatic biliary ductal dilatation. PANCREAS: Unremarkable. No focal cystic or solid mass. SPLEEN: Unremarkable. Normal size without focal cystic or solid mass. ADRENALS: Unremarkable. No nodules. KIDNEYS AND URETERS: Unremarkable. Normal renal size and position. No hydronephrosis. STOMACH AND BOWEL: Unremarkable. No stomach or bowel distention. No focal inflammatory change. PELVIS: APPENDIX: Normal. BLADDER: Unremarkable. REPRODUCTIVE: Postsurgical absence of the uterus and ovaries. ABDOMEN and PELVIS: INTRAPERITONEAL SPACE: Unremarkable. No ascites or other fluid collection. No free air. BONES/JOINTS: Pronounced L5-S1 degenerative disc space height narrowing is unchanged. No lytic or blastic lesions. SOFT TISSUES: Unremarkable. No discrete abdominal or pelvic wall hernia. VASCULATURE: Unremarkable. Abdominal aorta is non-dilated. LYMPH NODES: Unremarkable. No enlarged lymph nodes. CT/Abdomen/Pelvis W IV Cont ONLY IMPRESSION: 1. Moderate diffuse hepatic steatosis and hepatomegaly. 2. No CT evidence of acute abnormality in the abdomen and pelvis. Electronically Signed: Abebe Oswald MD at 9:10 EDT ,
[2024-02-14 06:28] LABS: Absolute Lymphocyte Count 4.09 X10^3/uL (0.83-4.51); Absolute Neutrophil Count 5.1 X10^3/uL (2.0-7.7); Basophil# 0.02 X10^3/uL; Basophil% 0.2 % (0-1); Eosinophil# 0.12 X10^3/uL; Eosinophils% 1.2 % (0-5); Hematocrit 45.1 % (37-47); Hemoglobin 13.8 g/dL (12.0-15.0); Lymphocyte # 4.09 X10^3/ul (0.83-4.51); Lymphocyte % 40.7 % (19-41); Mean Corp Hgb Conc 30.6 g/dL (32-36); Mean Corpuscular Hgb 25.4 pg (27.0-32.0); Mean Corpuscular Volume 83.1 fL (81-99); Mean Platelet Vol. 10.8 fl (6.2-12.0); Monocyte# 0.65 X10^3/uL; Monocyte% 6.5 % (0-10); NRBC Flagged by Analyzer 0 % (0-5); Neutrophil % 50.6 % (47-70); POSITIVE MORPHOLOGY YES; Platelet Count 340 K/mm3 (150-450); RBC Distribution Width CV 15.2 % (11.6-14.6); RBC Distribution Width SD 45.8 fl (35.1-43.9); Red Blood Count 5.43 M/mm3 (4.2-5.4); White Blood Count 10.1 K/mm3 (4.4-11.0)
[2024-02-14 06:29] LABS: Differential Indicated SCAN CRITERIA MET
[2024-02-14] MEDS: 0.9% Normal Saline (1000mL) 1,000 ML 999 ML IV (06:29)
[2024-02-14] MEDS: Morphine 4 MG/ML Syringe IV (06:29)
[2024-02-14] MEDS: Ondansetron 4 MG/2 ML Vial IV (06:29)
--- NOTE | 2024-02-14 06:47 | EDS_ITS ---
HPI History of Present Illness Chief Complaint: Nausea/Vomiting Informant: patient and spouse/S.O. Narrative Narrative: Patient is a 48-year-old female with past medical history of hypertension and anxiety. She states she has had her gallbladder removed as well as her uterus and ovaries. She reports roughly 7 to 10 days ago she had a 2 to 3-day bout of recurrent nausea and vomiting with abdominal pain. She states the symptoms resolved and then a few days later they returned. She states that she has been constipated but still passing gas. She denies any known sick contact. She denies any dysuria. She reports no history of intestinal disorders such as ulcerative colitis Crohn's disease or IBS. She denies any history of obstruction. However because of her current symptoms and the fact that they are not resolving spontaneously or with [id number] medication she presents for evaluation [facility] Medical History HTN (hypertension) Hx Gallbladder Removal (~2008) Home Medications ropinirole 0.5 mg tablet 0.5 mg PO DAILY Restless leg 10/03/18 [History Last Tong en 10/02/18 20:00] pantoprazole 40 mg tablet,delayed release 40 mg PO DAILY #30 tabs 10/04/18 [Rx Last Taken Unknown] duloxetine 30 mg capsule,delayed release ea PO 12/10/20 [History Last Taken Unknown] estradiol 2 mg tablet mg PO 12/10/20 [History Last Taken Unknown] lisinopril 10 mg tablet ea PO 12/10/20 [History Last Taken Unknown] meloxicam 15 mg tablet (Mobic) 15 mg PO DAILY #30 tabs 02/20/21 [Rx Last Taken Unknown] methylprednisolone 4 mg tablet 4 mg PO .COMPLEX #42 tabs 02/20/21 [Rx Last Taken Unknown] Allergy/AdvReac Type Severity Reaction Status Date / Time Penicillins [PCN] Allergy Hives Verified 02/14/24 05:55 Family History (Updated 12/10/20 @ 11:08 by Elodia Hamilton) Father Heart disease Hypertension Surgical History (Updated 12/10/20 @ 11:10 by Elodia Hamilton) History of foot surgery (~2019) History of tonsillectomy (~1985) Hx of hysterectomy (~2011) Social History (Updated 02/20/21 @ 12:[address] Jarret Duong, DO) Smoking Status: Former smoker alcohol intake: current alcohol intake frequency: holidays/special occasions only ROS ROS ED Constitutional Constitutional ED: Denies chills or fever(s) ENT ENT ED: Denies sore throat Cardiovascular Cardiovascular: Denies chest pain Respiratory/Chest Respiratory/Chest: Denies cough or dyspnea Gastrointestinal Gastrointestinal: Reports abdominal pain, constipation, nausea and vomiting; Denies diarrhea Genitourinary Genitourinary ED: Denies dysuria, hematuria or urinary frequency Musculoskeletal Musculoskeletal: Denies myalgias Integumentary Denies rash Neurologic Neurologic: Denies headache(s) Hematologic/Lymphatic Hematologic/Lymphatic: Denies easy bleeding or easy bruising EXAM Physical Exam Const Vital Signs: 02/14/24 05:55 Temperature 99.1 F Temperature Source Temporal Pulse Rate 100 Respiratory Rate 18 Blood Pressure 127/105 H Blood Pressure Mean 112 Pulse Ox 97 Oxygen Delivery Method Room Air Positive well nourished, well developed and obese General Appearance ED: well developed; Negative for pallor Nutritional Appearance: obese HEENT HEENT Narrative: Mucous membranes are slightly dry and tacky No tongue or lip swelling. No oral lesions no airway edema or compromise No signs of infection noted in the posterior pharynx Eyes PERRL and EOMs intact bilaterally General Eye ED: Negative for scleral icterus Neck supple Resp normal respiratory effort and clear to auscultation bilaterally Cardio regular rate and regular rhythm Rate: other Other Details: Heart is regular rate and rhythm without murmurs rubs or gallops Radial and carotid pulses are equal and symmetric GI non-distended GI Narrative: Abdomen is soft and nondistended with hypoactive bowel sounds. There is pain with palpation greatest in the midepigastric region without voluntary guarding or rigidity. No pulsatile mass or fluid wave. No increased tympany Auscultation: hypoactive bowel sounds Palpation: soft Back/Spine no CVA tenderness Extremity normal to inspection Neuro oriented x3, CN's II-XII intact bilaterally and no sensory deficits noted Sensorium / Orientation: alert Motor Exam: strength 5/5 throughout Psych mental status grossly normal Skin no rashes or lesions noted and no wounds General Skin Exam: Negative for jaundice or pallor MDM MDM MDM Narrative Medical decision making narrative: Patient presented to the ER hypertensive otherwise with stable vitals. She reported symptoms roughly 7 to 10 days prior to today's event and had no known sick contacts or history of abdominal pathology such as ulcerative colitis or Crohn's disease or cyclic vomiting syndrome. Based on her history of cholecystectomy and hysterectomy and the fact that she has been dealing with constipation and recurrent vomiting potential for a small bowel obstruction is high on the differential. There is also concern that patient will have an acute kidney injury or electrolyte abnormality. Basic blood work will be obtained as well as CT scan with IV contrast. At this time the studies are still pending and therefore the patient will be signed out to the day physician for continued care. History & Record Review Discussion w/independent historian: Patient and Significant other Lab Data Attestation: I reviewed the patient's lab results. Labs: Laboratory Results - last 24 hr 02/14/24 02/14/24 06:00 06:26 WBC 10.1 RBC 5.43 H Hgb 13.8 Hct 45.1 MCV 83.1 MCH 25.4 L MCHC 30.6 L RDW Std Deviation 45.8 H RDW Coeff of Pop 15.2 H Plt Count 340 MPV 10.8 Immature Gran % (Auto) 0.800 Neut % (Auto) 50.6 Lymph % (Auto) 40.7 Sampson % (Auto) 6.5 Eos % (Auto) 1.2 Baso % (Auto) 0.2 Absolute Neuts (auto) 5.1 Absolute Lymphs (auto) 4.09 Nucleated RBC % 0 Differential Comment SCANNED Sodium 138 Potassium 4.6 Chloride 106 Carbon Dioxide 27.0 Anion Gap 5 BUN 11 Creatinine 0.70 Estim Creat Clear Calc 147.10 Est GFR (MDRD) Af Amer 113 Est GFR (MDRD) Non-Af 93 BUN/Creatinine Ratio 15.6 Glucose 189 H Lactic Acid 2.2 H* Calcium 8.8 Total Bilirubin 0.40 Direct Bilirubin 0.06 AST 35 ALT 79 H Alkaline Phosphatase 118 H Total Protein 7.5 Albumin 3.7 Globulin 3.8 Lipase TNP Discharge Plan Triage Chief Complaint: Nausea/Vomiting ED Provider: Billy Renteria Dx/Rx/DC Orders Prescriptions: No Action duloxetine 30 mg capsule,delayed release(DR/EC) PO Patient Comments: take 1 capsule by mouth twice a day lisinopril 10 mg tablet PO Patient Comments: take 1 tablet by mouth once daily estradiol 2 mg tablet PO methylprednisolone 4 mg tablet 4 mg PO .COMPLEX Qty: 42 0RF Rx Instructions: Day 1 and day 2: 2 tab in am, 1 tab at lunch,1 at dinner 2 at bedtime Day 3 and day 4: 1 tab in am 1 at lunch, 1 at dinner 2 at bedtime Day 4 and 5: 1 tab in am, 1 at lunch 1 at dinner 1 at bedtime Day 6 and 7: 1 tab in am 1 at lunch at 1 at bedtime Day 7 and 8: 1 in am 1 at bedtime Day 9 and 10: 1 in am meloxicam [Mobic] 15 mg tablet 15 mg PO DAILY Qty: 30 0RF ropinirole 0.5 MG tablet 0.5 mg PO DAILY Patient Comments: Restless leg pantoprazole 40 MG tablet 40 mg PO DAILY Qty: 30 0RF Primary Care Provider: Srikanth Pineda NP Referrals: Srikanth Pineda NP, [facility] [Primary Care Provider] -
[2024-02-14 06:49] LABS: AST(SGOT) 35 U/L (15-37); Alanine Aminotransfer ALT/SGPT 79 U/L (13-56); Albumin, Serum 3.7 g/dL (3.2-5.0); Alkaline Phosphatase 118 U/L (45-117); Anion Gap 5 (5-15); BUN 11 mg/dL (7-18); BUN/Creat Ratio 15.6 RATIO (10-20); Bilirubin, Direct 0.06 mg/dL (0.00-0.30); Calcium,Total 8.8 mg/dL (8.5-10.1); Chloride 106 mmol/L (98-107); EST Glomerular Filtration Rate 93 mL/min (>60); Est Glom Filt Rate - Afr Amer 113 mL/min (>60); Globulin 3.8 g/dL (2.2-4.2); Glucose 189 mg/dL (74-106); Potassium 4.6 mmol/L (3.5-5.1); Protein, Total 7.5 g/dL (6.4-8.2); Sodium Level 138 mmol/L (136-145)
[2024-02-14 07:03] LABS: Lactic Acid 2.2 mmol/L (0.4-1.9)
[2024-02-14 07:05] LABS: Differential Comment SCANNED
[2024-02-14] MEDS: Haloperidol Lactate 5 MG/ML Vial IV (07:11)
[2024-02-14 08:21] VITALS: BP 92/65; RESP 16; O2SAT 94
[2024-02-14 09:43] VITALS: BP 102/73; PULSE 75; RESP 18; TEMP 36.1; O2SAT 97
[2024-02-14 10:30] LABS: Reflex Lactate? Y
[2024-02-14 13:29] LABS: Lipase 47 U/L (13-75)
== END 2024-02-14 09:47 | disposition home or self-care (01) ==
PROVIDERS: Emergency Provider Emergency Medicine; PCP Nurse Practitioner Family; Visit Provider Emergency Medicine
DX: R10.13 Epigastric pain (principal); R11.2 Nausea with vomiting, unspecified; I10 Essential (primary) hypertension; F41.9 Anxiety disorder, unspecified; Z87.891 Personal history of nicotine dependence; Z90.49 Acquired absence of other specified parts of digestive tract; E66.9 Obesity, unspecified
CPT/HCPCS: 74177; 80048; 80076; 83605; 83690; 85025; 96361; 96374; 96375; 99283; J7030; Q9967; A4216; J2405

== ENCOUNTER → 2024-03-21 | Outpatient (CLI) | payer BC, SELFPAY ==
--- NOTE | 2024-03-21 08:27 | BI_ITS ---
MAMMOGRAPHY - BILATERAL SCREENING 3-D TOMOSYNTHESIS REASON FOR EXAM: Female, 48 years old. SCREENING PERTINENT HISTORY: No significant family history. TECHNIQUE: 2-D mammograms and 3-D Tomosynthesis of the breast (s) were performed. CAD was performed. COMPARISON: 10/16/2021 FINDINGS: The breast composition is composed of scattered fibroglandular density. Scattered benign calcifications are seen. No dense spiculated masses or suspicious microcalcifications are identified. No architectural distortion is identified. There is no skin thickening or retraction. There has been no significant change since the prior study. BI/SCRN MAMM (CAD)W/MUKESH BILAT IMPRESSION: No mammographic signs of malignancy. Routine yearly mammograms recommended. ASSESSMENT CATEGORY: BIRADS Category 1: Negative. A letter regarding these results will be sent to the patient by the facility within 30 days. FOLLOW UP RECOMMENDATION: Yearly follow up mammogram recommended. (A) Approximately 10% of breast cancers are not detected by mammography. A normal mammogram should not delay biopsy of a clinically suspicious abnormality. Electronically Signed: Srikanth Srivastava MD at 10:01 EDT ,
== END | disposition home or self-care (01) ==
PROVIDERS: PCP Nurse Practitioner Family; Referring Provider Nurse Practitioner Family; Visit Provider Nurse Practitioner Family
DX: Z12.31 Encounter for screening mammogram for malignant neoplasm of breast (principal)
CPT/HCPCS: 77063; 77067

== ENCOUNTER → 2024-09-12 | Outpatient (CLI) | payer OTHER, SELFPAY ==
[2024-09-12 10:23] LABS: Hematocrit 41.5 % (37-47); Hemoglobin 12.8 g/dL (12.0-15.0); Mean Corp Hgb Conc 30.8 g/dL (32-36); Mean Corpuscular Volume 84.2 fL (81-99); Platelet Count 311 K/mm3 (150-450); RBC Distribution Width CV 13.9 % (11.6-14.6); RBC Distribution Width SD 42.9 fl (35.1-43.9); Red Blood Count 4.93 M/mm3 (4.2-5.4); White Blood Count 8.5 K/mm3 (4.4-11.0)
[2024-09-12 10:37] LABS: Vitamin D,25 Hydroxy 54.2 ng/mL
[2024-09-12 10:41] LABS: Microalbumin,Random Urine 23.4 mg/L (NO RANGE EST.); Microalbumin:Creatinine Ratio 16.2 mg/g CRE (<30 mg/g CRE)
[2024-09-12 10:48] LABS: ALB/GLOB Ratio 0.9 RATIO (0.9-2.4); AST(SGOT) 9 U/L (15-37); Alanine Aminotransfer ALT/SGPT 23 U/L (13-56); Albumin, Serum 3.5 g/dL (3.2-5.0); Alkaline Phosphatase 104 U/L (45-117); Anion Gap 7 (5-15); BUN 12 mg/dL (7-18); BUN/Creat Ratio 19.8 RATIO (10-20); Calcium,Total 9.3 mg/dL (8.5-10.1); Chloride 106 mmol/L (98-107); Cholesterol 179 mg/dL (200); EST Glomerular Filtration Rate 111 mL/min (>60); Est Glom Filt Rate - Afr Amer 134 mL/min (>60); Globulin 3.8 g/dL (2.2-4.2); Glucose 132 mg/dL (74-106); High Density Lipoprotein 48 mg/dL; Potassium 4.2 mmol/L (3.5-5.1); Protein, Total 7.3 g/dL (6.4-8.2); Sodium Level 137 mmol/L (136-145); Triglycerides 165 mg/dL; Very Low Density Lipoprotein 33 mg/dL (5-40)
[2024-09-12 13:13] LABS: Hemoglobin A1c 6.4 % (3.8-5.6)
== END | disposition home or self-care (01) ==
LOC: MTLAB 08:10
PROVIDERS: PCP Nurse Practitioner Family; Referring Provider Nurse Practitioner Family; Visit Provider Nurse Practitioner Family
DX: E11.9 Type 2 diabetes mellitus without complications (principal); I10 Essential (primary) hypertension; E78.2 Mixed hyperlipidemia; E55.9 Vitamin D deficiency, unspecified; G25.81 Restless legs syndrome; M79.7 Fibromyalgia
CPT/HCPCS: 36415; 80053; 80061; 82043; 82306; 82570; 83036; 85027